=== PATIENT | female | born 1935 | race Caucasian/White ===

== ENCOUNTER 2016-07-06 21:47 | Inpatient (IN) ==
[2016-07-06] MEDS ORDERED: *HR* FentaNYL (PF) 100 MCG/2 ML VIAL NS ONE (21:52)
[2016-07-06 22:24] LABS: Basophils # 0.1 K/mcL (0.0-0.2); Basophils % 0.8 %; Eosinophils # 0.1 K/mcL (0.0-0.6); Eosinophils % 0.8 %; Hematocrit 33.7 % (35.3-44.9); Immature Granulocytes % 0.9 % (0-4); Lymphocytes # 0.9 K/mcL (0.6-4.6); Mean Corpuscular HGB Conc 32.6 g/dL (31.6-35.5); Mean Corpuscular Hemoglobin 35.6 pg (28.0-33.3); Mean Corpuscular Volume 109.1 fL (83.0-100.0); Mean Platelet Volume 10.3 fL (9.4-12.4); Monocytes # 0.5 K/mcL (0.0-1.3); Monocytes % 8.2 %; Neutrophils # 4.8 K/mcL (1.6-8.9); Platelet Count 195 K/mcL (140-400); Red Blood Count 3.09 M/mcL (3.82-4.97); Segmented Neutrophils % 75.3 %
[2016-07-06 22:29] LABS: INR 1.1; Prothrombin Time 12.1 Seconds (9.4-12.1)
[2016-07-06 22:34] LABS: BUN/Creatinine Ratio 24 (6-26); Blood Urea Nitrogen 17 mg/dL (7-20); Calcium 8.8 mg/dL (8.6-10.8); Carbon Dioxide 32 mEq/L (19-29); Chloride 109 mEq/L (98-109); Glucose 178 mg/dL (70-99); Osmolality,Calculated 312 (280-300); Potassium 3.9 mEq/L (3.5-4.5); Sodium 148 mEq/L (136-145); eGFR For African Americans > 60 (> 60); eGFR For Non-African Americans > 60 (> 60)
--- NOTE | 2016-07-06 22:35 | Emergency Department Note ---
Disposition Clinical Impression: Intertrochanteric fracture of left femur Qualifiers: Encounter type: initial encounter Fracture type: closed Qualified Code(s): S72.142A - Displaced intertrochanteric fracture of left femur, initial encounter for closed fracture Disposition: Admitted As Inpatient Condition: Fair Time of Disposition: 23:28 Lower Extremity Injury HPI - General Chief Complaint: ED Extremity Injury, Lower Stated Complaint: left hip pain Time Seen by Provider: 07/06/16 21:50 Source: patient, EMS Mode of arrival: EMS Limitations: other Nursing Notes Reviewed: Yes Vital Signs Reviewed: Yes - History of Present Illness HPI Narrative: Patient presents to the ED via EMS after a fall with the chief complaint of left hip pain and deformity. Patient has a history of dementia and is unable to provide any medical history or full review of symptoms. She does state that she fell today and has left hip pain. Denies chest pain, difficulty breathing or abdominal pain. Patient' s is on the way. - Related Data Previous Rx's Medication Instructions Recorded Ciprofloxacin HCl [Cipro] 500 mg PO BID #14 tab 09/13/15 Acetaminophen [Tylenol] 1,000 mg PO Q8HR PRN #9 tablet 02/29/16 Allergies Allergy/AdvReac Type Severity Reaction Status Date / Time No Known Allergies Allergy Verified 02/29/16 11:10 Limitations: ROS unobtainable due to patients medical condition Past Medical History - Past Medical History Attestation: Yes The following information was validated with the patient. Source: old records reviewed Medical history: Reports: hyperlipidemia, hypertension, seizures Psychiatric history: Reports: no psych history [employer] history: Reports: no [employer] WORK[employer] history - Social History Smoking Status: Never smoker Smokeless Tobacco Status: No Alcohol use: Reports: none Drug use: Reports: none Physical Exam - General Limitations: other General appearance: alert, in no apparent distress - Head Head exam: atraumatic, normocephalic, normal inspection - Eye Eye exam: Present: normal appearance, PERRL, EOMI - ENT ENT exam: normal exam, normal oropharynx, mucous membranes moist - Neck Neck exam: Present: normal inspection, full ROM, trachea midline. Absent: tenderness - Chest Chest inspection: Present: normal inspection, symmetric chest wall rise - Respiratory Respiratory exam: Present: normal lung sounds bilaterally - Cardiovascular Cardiovascular exam: Present: regular rate, normal rhythm, normal heart sounds - Abdominal Exam Abdominal exam: Present: soft, Non-Tender. Absent: tenderness, distention, guarding, rebound, rigidity - Expanded Lower Extremity Exam Hip/Pelvis exam: Present: deformity (Deformity over the left greater trochanter , tenderness, hip is shortened and slightly externally rotated. Neurovascularly intact) Knee exam: Present: other (Mild tenderness to the left knee but states that it actually hurts in her hip when palpated.) Gait: unable to bear weight - Neurological Exam Neurological exam: Present: alert, other (baseline according EMS, is in route) - Skin Skin exam: Present: warm, dry, intact, normal color Course Course Narrative: 80-year-old female with suspected femur or hip fracture. We will obtain labs and medication and x-rays. Likely admission. - Reevaluation(s) Reevaluation #1: is now present. The patient was just getting home after dinner and they have 5 steps leading up into the kitchen and as soon as she stepped up from the last step, She fell. She was unable to ambulate afterwards. Patient has a left intertrochanteric fracture. Spoke with orthopedics, recommended admission to hospitalist service. Spoke with the hospitalist accepted admission. reports patient is otherwise healthy and has no history of coronary artery disease, hypertension or diabetes. Vital Signs Temperature 97.7 F 07/06/16 21:49 Pulse Rate 77 07/06/16 21:49 Respiratory Rate 19 07/06/16 21:49 Blood Pressure 186/95 07/06/16 21:49 O2 Sat by Pulse Oximetry 98 07/06/16 21:49 Temperature 97.7 F 07/06/16 21:49 Pulse Rate 68 07/06/16 23:02 Respiratory Rate 20 07/06/16 23:02 Blood Pressure 178/77 07/06/16 23:02 O2 Sat by Pulse Oximetry 99 07/06/16 23:02 Oxygen Delivery Oxygen Delivery Room Air Extremity Injury, Lower - Lab Data Result diagrams: 07/06/16 22:16 07/06/16 22:16 Lab Results 07/06/16 07/06/16 07/06/16 Range/Units 22:16 22:16 22:16 WBC 6.4 (4.3-11.1) K/mcL RBC 3.09 L (3.82-4.97) M/mcL Hgb 11.0 L (11.5-15.4) g/dL Hct 33.7 L (35.3-44.9) % MCV 109.1 H (83.0-100.0) fL MCH 35.6 H (28.0-33.3) pg MCHC 32.6 (31.6-35.5) g/dL RDW 15.0 H (11.5-14.5) % Plt Count 195 (140-400) K/mcL MPV 10.3 (9.4-12.4) fL Immature Gran % 0.9 (0-4) % Seg Neutrophils % 75.3 % Lymphocytes % 14.0 % Monocytes % 8.2 % Eosinophils % 0.8 % Basophils % 0.8 % Neutrophils # 4.8 (1.6-8.9) K/mcL Lymphocytes # 0.9 (0.6-4.6) K/mcL Monocytes # 0.5 (0.0-1.3) K/mcL Eosinophils # 0.1 (0.0-0.6) K/mcL Basophils # 0.1 (0.0-0.2) K/mcL PT 12.1 (9.4-12.1) Seconds INR 1.1 Sodium 148 H (136-145) mEq/L Potassium 3.9 (3.5-4.5) mEq/L Chloride 109 (98-109) mEq/L Carbon Dioxide 32 H (19-29) mEq/L BUN 17 (7-20) mg/dL Creatinine 0.71 (0.57-1.11) mg/dL Est GFR ( Amer) > 60 (> 60) Est GFR (Non-Af Amer) > 60 (> 60) BUN/Creatinine Ratio 24 (6-26) Glucose 178 H (70-99) mg/dL Calculated Osmolality 312 H (280-300) Calcium 8.8 (8.6-10.8) mg/dL Blood Type Antibody Screen 07/06/16 Range/Units 22:16 WBC (4.3-11.1) K/mcL RBC (3.82-4.97) M/mcL Hgb (11.5-15.4) g/dL Hct (35.3-44.9) % MCV (83.0-100.0) fL MCH (28.0-33.3) pg MCHC (31.6-35.5) g/dL RDW (11.5-14.5) % Plt Count (140-400) K/mcL MPV (9.4-12.4) fL Immature Gran % (0-4) % Seg Neutrophils % % Lymphocytes % % Monocytes % % Eosinophils % % Basophils % % Neutrophils # (1.6-8.9) K/mcL Lymphocytes # (0.6-4.6) K/mcL Monocytes # (0.0-1.3) K/mcL Eosinophils # (0.0-0.6) K/mcL Basophils # (0.0-0.2) K/mcL PT (9.4-12.1) Seconds INR Sodium (136-145) mEq/L Potassium (3.5-4.5) mEq/L Chloride (98-109) mEq/L Carbon Dioxide (19-29) mEq/L BUN (7-20) mg/dL Creatinine (0.57-1.11) mg/dL Est GFR ( Amer) (> 60) Est GFR (Non-Af Amer) (> 60) BUN/Creatinine Ratio (6-26) Glucose (70-99) mg/dL Calculated Osmolality (280-300) Calcium (8.6-10.8) mg/dL Blood Type A POSITIVE Antibody Screen NEGATIVE Attestation Statement - Attestation Attestation: I, Jaden Garcia MD, personally performed a history and physical exam of the patient and discussed their management with the resident. I reviewed the resident's note and agree with the documented findings, medical decision making , and plan of care. 80-year-old female presents to the emergency department by parents with a complaint that she fell sometime earlier this evening and injured her left hip and thigh area. She was unable to get up or ambulate after the fall. Patient has very poor historian. She denies hitting her head. She denies any headache or neck pain. No pain in her back. No chest pain or abdominal pain. She is unsure exactly what caused her to fall. On examination patient is a well-developed thin elderly female in no acute distress. She does appear to be in moderate discomfort. She is alert and oriented. There is no cyanosis or diaphoresis. Head is nontender with no scalp tenderness or hematomas. No facial contusions noted. Neck is supple and nontender with full range of motion. Breath sounds are clear and equal bilaterally. Heart regular rate and rhythm. Abdomen soft and nontender with normal bowel sounds. No gross focal neurological deficits. There is marked tenderness over the left hip with some swelling and shortening of the left leg. Neurovascular function is intact distally. X-ray of the left hip femur and pelvis shows an acute intertrochanteric fracture of the left hip. No other fractures noted. Dr. Acuna discussed the case with the orthopedist director of oncology, Dr. Cotton, and he recommended admission by the hospitalist. The hospitalist, Dr. Merritt, was consulted and accepted admission of the patient.
[2016-07-07] MEDS ORDERED: *HR* OxyCODONE Immed Rel 5 MG TABLET PO PRN (01:39)
[2016-07-07] MEDS ORDERED: Ondansetron 4 MG/2 ML VIAL IVP PRN (01:39)
[2016-07-07] MEDS ORDERED: Acetaminophen 325 MG TABLET PO PRN (01:39)
[2016-07-07] MEDS ORDERED: Pantoprazole 40 MG VIAL IVP STA (01:39)
[2016-07-07] MEDS ORDERED: Naloxone 0.4 MG/ML INJ IVP PRN (01:39)
[2016-07-07] MEDS ORDERED: 0.9 % Sodium Chloride 1,000 ML IVC SCH (01:45)
--- NOTE | 2016-07-07 01:54 | Internal Med History&Physical ---
Date of Encounter: 07/07/16 Time of Encounter: 01:51 Assessment and Plan (1) Falls frequently Current visit: Yes Status: Chronic . (2) Dementia arising in the senium and presenium Current visit: Yes Status: Chronic . (3) Hyperosmolality and hypernatremia Current visit: Yes Status: Acute . (4) Anemia Current visit: Yes Status: Acute . Qualifiers: Anemia type: unspecified type Qualified Code(s): D64.9 - Anemia, unspecified (5) HTN (hypertension) Current visit: Yes Status: Chronic . Qualifiers: Hypertension type: unspecified secondary hypertension Qualified Code(s): I15.9 - Secondary hypertension, unspecified; I15 - Secondary hypertension (6) At risk for accident in home Current visit: Yes Status: Acute . (7) At risk for acid-base imbalance Current visit: Yes Status: Acute . (8) At risk for activity intolerance Current visit: Yes Status: Acute . (9) At risk for acute confusion Current visit: Yes Status: Acute . (10) Intertrochanteric fracture of left femur Current visit: Yes Status: Acute . Qualifiers: Encounter type: initial encounter Fracture type: closed Qualified Code(s) : S72.142A - Displaced intertrochanteric fracture of left femur, initial encounter for closed fracture (11) Frail elderly Current visit: Yes Status: Chronic . Internal Medicine - H&P: HPI Chief complaint: Left leg injury. Frequent falling. Admitted From: Emergency Dept Plans for Post Hospital Care: Home History of present illness: Ms. Donovan is a 80 year old female with advanced dementia with additional chronic medical problems that have included hypertension, dyslipidemia, presyncope-syncope unspecified, remote history of seizure disorder unspecified, right breast cancer status post mastectomy, depression and anxiety disorder, osteoarthritis, osteoporosis, nonsmoker. Patient carries a significant history of frequent falling. As a consequence over the years she suffered multiple fracture injuries that included clavicular fracture with fractures radius and Colles' fractures. She is admitted to [facility] at this time following a fall with left hip injury due to an acute closed intertrochanteric fracture. No evidence of fracture of the pelvis or left femoral shaft was identified radiographically. Due to the patient's advanced dementia and due to limitation of her who also suffers cognitive impairment and hearing loss it cannot be validated with about a single event occurred versus a simple stumble and fall. Patient has suffered no other obvious traumatic injuries. Vital signs are stable. CBC with differential macrocytic hyperchromic anemia with suggestion of underlying iron deficiency. PT/INR normal. Basic metabolic panel finds hypernatremia and hyperosmolality. Mild metabolic alkalosis. Mild hyperglycemia. No grossly apparent focal neurologic deficits are apparent. Neurovascular function is intact distally. Cardiopulmonary function is stable. The patient presents risk for further acute clinical decline and morbidity due to advanced age, frailty, presenting clinical findings and comorbidities. Workup and treatments will proceed comprehensively. Consultative opinion be sought as clinical circumstances justify. Surgery has been consulted. Cumulative laboratory and radiographic studies have been reviewed, considered and discussed. Given the patient's presenting concerns, past medical history, clinical findings and symptoms, she is admitted at this time to undergo further evaluation and disposition. Orders written. Past Med Surg Social Fam HX - Past Medical History Source: old records reviewed Medical history: arthritis, cancer (Breast Ca s/p right mastectomy.), dementia, hyperlipidemia, hypertension, malignancy, osteoporosis (Colle's fracture right wrist, closed. Multiple fractures secondary to frequent falling including clavicular fracture, rule out fracture, radius fracture.), peripheral artery disease (Left and right internal carotid artery atherosclerosis with 40-59% stenosis), seizures, syncope, other Psychiatric history: anxiety, depression, other - Past Surgical History Surgical History: appendectomy, cancer surgery, cataract, cholecystectomy, orthopedic, other, sinus surgery (Tonsillectomy adenoidectomy.), other - Social History Smoking Status: Never smoker Smokeless Tobacco Status: No Alcohol use: none Drug use: none Occupational status: unemployed Current living situation: Home, With Family Activity Level: Mostly sedentary Recent Out of Country Travel Within the Last 8 Weeks: No Exposure or Possible Exposure to Illness During Travel: No Internal Medicine - H&P: Meds Allergies No Known Allergies Allergy (Verified 02/29/16 11:10) ROS unobtainable: due to mental status All Systems PM: A 10-system review of systems was performed and is negative for pertinent findings except as documented above in the HPI. Patient Problems (Last Updated 07/06/16 @ 23:28 by Luc Acuna DO) Intertrochanteric fracture of left femur (Acute Medical) S72.142A Dehydration (Inactive Medical) E86.0 Fall (Inactive Medical) W19.XXXA Fracture of right distal radius (Inactive Medical) S52.501A History of dementia (Inactive Medical) Z86.59 Rib pain on left side (Inactive Medical) R07.81 Short-term memory loss (Inactive Medical) UTI (urinary tract infection) (Inactive Medical) N39.0 - Constitutional Constitutional: as per HPI - EENT Eyes: as per HPI Ears: as per HPI Nose, mouth and throat: as per HPI - Breasts Breasts: as per HPI - Cardiovascular Cardiovascular ROS IM: as per HPI - Respiratory Respiratory: as per HPI - Gastrointestinal Gastrointestinal: as per HPI - Genitourinary Genitourinary: as per HPI - Musculoskeletal Musculoskeletal ROS IM: as per HPI - Integumentary Integumentary IM: as per HPI - Neurological Neurological ROS: as per HPI - Psychiatric Psychiatric: as per HPI - Endocrine Endocrine IM: as per HPI - Hematologic/Lymphatic Hematologic/Lymphatic: as per HPI - Allergic/Immunologic Allergic/Immunologic: as per HPI - Constitutional Vitals: Temp Pulse Resp BP Pulse Ox 98.2 F 70 17 179/72 99 07/07/16 00:26 07/07/16 00:26 07/07/16 00:26 07/07/16 00:26 07/07/16 00:26 Vital Signs Temp Pulse Resp BP Pulse Ox 07/07/16 00:26 98.2 F 70 17 179/72 99 07/06/16 23:52 20 178/77 07/06/16 23:02 68 20 178/77 99 07/06/16 21:49 97.7 F 77 19 186/95 98 Intake and Output 07/06/16 07/06/16 07/07/16 15:59 23:59 07:59 Intake Total 0 / 0 Output Total 350 / 350 Balance -350 / -350 Intake: Oral 0 / 0 Output: Catheter 350 / 350 Other: Weight 52.163 kg 46.408 kg Patient Weight 07/07/16 23:59 Weight 46.408 kg General appearance: Present: cachectic, A&O X 2, underweight. Absent: answers questions appropriately - Head Head exam: Present: atraumatic, normocephalic - Eye Eye exam: Present: EOMI, PERRL, conjuntiva pink, sclera anicteric Pupils: Present: normal accommodation, PERRL - ENT ENT exam: Present: mucous membranes moist, normal oropharynx - Neck Neck exam general surgery: Present: supple, trachea midline. Absent: lymphadenopathy - Respiratory Respiratory exam: Present: decreased breath sounds, CTAB. Absent: accessory muscle use, rales, rhonchi, wheezes - Cardiovascular Cardiovascular exam: Present: distant heart sounds, RRR, +S1, +S2. Absent: diastolic murmur, gallop, rubs, systolic murmur - GI/Abdominal GI/Abdominal exam: Present: normal bowel sounds, soft, no peritoneal signs. Absent: distended, tenderness - Extremities Exam Extremities exam: Present: tenderness, warm, radial pulses palpable and symetrical. Absent: calf tenderness, cyanotic, pedal edema - Expanded Lower Extremities Exam Hip exam: Present: deformity, swelling, tenderness. Absent: full ROM, normal inspection Upper Leg exam: Present: swelling, tenderness. Absent: full ROM, normal inspection Neuro vascular tendon exam: Present: no vascular compromise, significant pain with passive ROM of distal joint. Absent: pulse deficit, sensory deficit Gait: Present: not tested/not observed - Neurological Exam Neurological exam: Present: alert, altered, CN II-XII intact, no focal deficits. Absent: oriented X3, pronater drift, facial droop, speech deficit - Psychiatric Psychiatric exam: Present: flat affect, normal mood - Skin Skin exam: Present: dry, intact, pallor, warm Internal Med - H&P Results - Labs CBC & Chem 7: 07/07/16 03:57 07/07/16 03:57 Labs: Short CBC 07/06/16 Range/Units 22:16 WBC 6.4 (4.3-11.1) K/mcL Hgb 11.0 L (11.5-15.4) g/dL Hct 33.7 L (35.3-44.9) % Plt Count 195 (140-400) K/mcL Neutrophils # 4.8 (1.6-8.9) K/mcL BMP 07/06/16 Range/Units 22:16 Sodium 148 H (136-145) mEq/L Potassium 3.9 (3.5-4.5) mEq/L Chloride 109 (98-109) mEq/L Carbon Dioxide 32 H (19-29) mEq/L BUN 17 (7-20) mg/dL Creatinine 0.71 (0.57-1.11) mg/dL Glucose 178 H (70-99) mg/dL Calcium 8.8 (8.6-10.8) mg/dL Abnormal lab results RBC 3.09 M/mcL (3.82-4.97) L 07/06/16 22:16 Hgb 11.0 g/dL (11.5-15.4) L 07/06/16 22:16 Hct 33.7 % (35.3-44.9) L 07/06/16 22:16 MCV 109.1 fL (83.0-100.0) H 07/06/16 22:16 MCH 35.6 pg (28.0-33.3) H 07/06/16 22:16 RDW 15.0 % (11.5-14.5) H 07/06/16 22:16 Sodium 148 mEq/L (136-145) H 07/06/16 22:16 Carbon Dioxide 32 mEq/L (19-29) H 07/06/16 22:16 Glucose 178 mg/dL (70-99) H 07/06/16 22:16 Calculated Osmolality 312 (280-300) H 07/06/16 22:16 Laboratory Results WBC 6.4 K/mcL (4.3-11.1) 07/06/16 22:16 RBC 3.09 M/mcL (3.82-4.97) L 07/06/16 22:16 Hgb 11.0 g/dL (11.5-15.4) L 07/06/16 22:16 Hct 33.7 % (35.3-44.9) L 07/06/16 22:16 MCV 109.1 fL (83.0-100.0) H 07/06/16 22:16 MCH 35.6 pg (28.0-33.3) H 07/06/16 22:16 MCHC 32.6 g/dL (31.6-35.5) 07/06/16 22:16 RDW 15.0 % (11.5-14.5) H 07/06/16 22:16 Plt Count 195 K/mcL (140-400) 07/06/16 22:16 MPV 10.3 fL (9.4-12.4) 07/06/16 22:16 Immature Gran % 0.9 % (0-4) 07/06/16 22:16 Seg Neutrophils % 75.3 % 07/06/16 22:16 Lymphocytes % 14.0 % 07/06/16 22:16 Monocytes % 8.2 % 07/06/16 22:16 Eosinophils % 0.8 % 07/06/16 22:16 Basophils % 0.8 % 07/06/16 22:16 Neutrophils # 4.8 K/mcL (1.6-8.9) 07/06/16 22:16 Lymphocytes # 0.9 K/mcL (0.6-4.6) 07/06/16 22:16 Monocytes # 0.5 K/mcL (0.0-1.3) 07/06/16 22:16 Eosinophils # 0.1 K/mcL (0.0-0.6) 07/06/16 22:16 Basophils # 0.1 K/mcL (0.0-0.2) 07/06/16 22:16 PT 12.1 Seconds (9.4-12.1) 07/06/16 22:16 INR 1.1 07/06/16 22:16 Sodium 148 mEq/L (136-145) H 07/06/16 22:16 Potassium 3.9 mEq/L (3.5-4.5) 07/06/16 22:16 Chloride 109 mEq/L (98-109) 07/06/16 22:16 Carbon Dioxide 32 mEq/L (19-29) H 07/06/16 22:16 BUN 17 mg/dL (7-20) 07/06/16 22:16 Creatinine 0.71 mg/dL (0.57-1.11) 07/06/16 22:16 Est GFR ( Amer) > 60 (> 60) 07/06/16 22:16 Est GFR (Non-Af Amer) > 60 (> 60) 07/06/16 22:16 BUN/Creatinine Ratio 24 (6-26) 07/06/16 22:16 Glucose 178 mg/dL (70-99) H 07/06/16 22:16 Calculated Osmolality 312 (280-300) H 07/06/16 22:16 Calcium 8.8 mg/dL (8.6-10.8) 07/06/16 22:16 Blood Type A POSITIVE 07/06/16 22:16 Antibody Screen NEGATIVE 07/06/16 22:16 Impressions Femur X-Ray 07/06/16 21:51 IMPRESSION: Acute intertrochanteric fracture of the left hip. No fracture of the pelvis or left femoral shaft is identified. D/ / Jaime Heredia MD / Jaime Heredia MD Interpreting Provider: Jaime Heredia MD Pelvis X-Ray 07/06/16 21:51
[2016-07-07] MEDS: *HR* Morphine 2 MG/ML SYRINGE IVP PRN ×2 (02:14→09:28)
[2016-07-07 02:29] LABS: Bilirubin,Urine Negative (Negative); Blood,Urine Negative (Negative); Clarity,Urine Clear (Clear); Color,Urine Yellow (Yellow); Glucose,Urine (UA) Normal (Normal); Ketones,Urine Negative (Negative); Leukocyte Esterase,Urine Small (Negative); Nitrite,Urine Negative (Negative); PH,Urine 7.5 pH Units (5.0-8.0); Protein,Urine Trace mg/dL (Neg-Trace); Specific Gravity,Urine 1.018 (1.010-1.025); Urobilinogen,Urine Normal (Normal)
[2016-07-07 02:31] LABS: Bacteria,Urine None Seen per hpf (None-Few); Hyaline Casts,Urine None Seen per lpf (None-Few); RBC,Urine 0-3 per hpf (0-3); Squamous Epithelial Cell,Urine Many per lpf (None-Few)
[2016-07-07] MEDS: D5% in Water 1,000 ML IVC SCH (02:48)
[2016-07-07 04:07] LABS: VBG PH 7.41 pH Units (7.32-7.42)
[2016-07-07 04:09] LABS: Basophils % 0.3 %; Hematocrit 31.7 % (35.3-44.9); Hemoglobin 10.3 g/dL (11.5-15.4); Immature Granulocytes % 0.4 % (0-4); Lymphocytes # 0.4 K/mcL (0.6-4.6); Lymphocytes % 4.3 %; Mean Corpuscular HGB Conc 32.5 g/dL (31.6-35.5); Mean Corpuscular Hemoglobin 35.3 pg (28.0-33.3); Mean Corpuscular Volume 108.6 fL (83.0-100.0); Mean Platelet Volume 10.4 fL (9.4-12.4); Monocytes # 0.8 K/mcL (0.0-1.3); Monocytes % 8.5 %; Neutrophils # 8.5 K/mcL (1.6-8.9); Platelet Count 191 K/mcL (140-400); Red Blood Count 2.92 M/mcL (3.82-4.97); Segmented Neutrophils % 86.5 %
[2016-07-07 04:12] LABS: INR 1.1; Prothrombin Time 12.3 Seconds (9.4-12.1)
[2016-07-07 04:15] LABS: Activated Partial Thrombo Time 26.2 Seconds (26.0-36.0)
[2016-07-07 04:23] LABS: Hemoglobin A1C 5.1 %
[2016-07-07 04:24] LABS: Alanine Aminotransferase 10 Units/L (0-55); Albumin 3.3 g/dL (3.5-5.0); Albumin/Globulin Ratio 1.1 (1.1-2.2); Alkaline Phosphatase 129 Units/L (38-126); Aspartate Amino Transferase 16 Units/L (5-34); BUN/Creatinine Ratio 22 (6-26); Bilirubin,Total 0.3 mg/dL (0.2-1.2); Blood Urea Nitrogen 14 mg/dL (7-20); Calcium 8.4 mg/dL (8.6-10.8); Carbon Dioxide 31 mEq/L (19-29); Chloride 109 mEq/L (98-109); Chol/HDL Ratio 3.5 (0-4.9); Cholesterol 219 mg/dL (< 200); Glucose 155 mg/dL (70-99); HDL Cholesterol 62 mg/dL (40-59); LDL Cholesterol,Calculated 143 mg/dL (0-99); Magnesium 2.1 mg/dL (1.6-2.6); Osmolality,Calculated 306 (280-300); Phosphorous 2.3 mg/dL (2.3-4.7); Potassium 3.6 mEq/L (3.5-4.5); Sodium 146 mEq/L (136-145); Total Protein 6.3 g/dL (6.0-8.3); Triglycerides 70 mg/dL (< 150); eGFR For African Americans > 60 (> 60); eGFR For Non-African Americans > 60 (> 60)
[2016-07-07 04:59] LABS: Folate 2.7 ng/mL (7.0-31.4)
[2016-07-07 05:40] LABS: Thyroid Stimulating Hormone 1.866 mcIU/mL (0.350-4.840)
--- NOTE | 2016-07-07 07:47 | Orthopedic Consult Note ---
Date of Encounter: 07/07/16 Time of Encounter: 07:46 Assessment and Plan (1) Intertrochanteric fracture of left femur Current Visit: Yes Status: Acute Plan for surgery today with . NPO. NWB Plan for Left hip Open reduction, intramedullary nail fixation. Consent reviewed, discussed and signed with her as acting POA. Qualifiers: Encounter type: initial encounter Fracture type: closed Qualified Code(s) : S72.142A - Displaced intertrochanteric fracture of left femur, initial encounter for closed fracture (2) Falls frequently Current Visit: Yes Status: Chronic (3) Dementia arising in the senium and presenium Current Visit: Yes Status: Chronic History of Present Illness Chief complaint: Fall HPI: Ms. Donovan is a 80 year old female, disoriented to person, place and time. She has a history of dementia and is a poor historian. History obtained from and medical records. She has had multiple falls recently, most recently yesterday, resulting in a Left hip fracture. She denies LOC, however, unable to be verified. She denies N/T and radiation of pain, but again she is not aware of surroundings. Vitals are stable, afebrile. Catheter in place. Past Med Surg Social Fam HX - Past Medical History Medical history: hyperlipidemia, hypertension, seizures, other Psychiatric history: no psych history - Past Surgical History Surgical History: other - Social History Smoking Status: Never smoker Smokeless Tobacco Status: No Alcohol use: none Drug use: none Medications and Allergies Anastrozole [Arimidex] 1 mg PO DAILY 07/07/16 [History] Lisinopril [Zestril] 20 mg PO DAILY 07/07/16 [History] Paroxetine HCl [Paxil] 10 mg PO QAM 07/07/16 [History] Phenytoin ER [Dilantin ER] 300 mg PO HS 07/07/16 [History] Allergies No Known Allergies Allergy (Verified 02/29/16 11:10) ROS unobtainable: due to mental status All Systems Reviewed: A 10-system review of systems was performed and is negative for pertinent findings except as documented above in the HPI. - Constitutional Constitutional: as per HPI - Cardiovascular Cardiovascular: as per HPI Physical Exam - Constitutional Vitals: Temp Pulse Resp BP Pulse Ox 97.7 F 75 16 161/71 98 07/07/16 06:53 07/07/16 06:53 07/07/16 06:53 07/07/16 06:53 07/07/16 06:53 - Fracture left hip Location of fracture: Left Hip Appearance: normal Compartments: soft Distal extremity neurovascularly intact: Yes Proximal joint involvement: No Distal joint involvement: No Results - Labs Result Diagrams: 07/08/16 04:46 07/08/16 04:46 Labs: Abnormal lab results RBC 2.92 M/mcL (3.82-4.97) L 07/07/16 03:57 Hgb 10.3 g/dL (11.5-15.4) L 07/07/16 03:57 Hct 31.7 % (35.3-44.9) L 07/07/16 03:57 MCV 108.6 fL (83.0-100.0) H 07/07/16 03:57 MCH 35.3 pg (28.0-33.3) H 07/07/16 03:57 RDW 15.0 % (11.5-14.5) H 07/07/16 03:57 Lymphocytes # 0.4 K/mcL (0.6-4.6) L 07/07/16 03:57 ESR 26 mm/hr (0-15) H 07/07/16 03:57 PT 12.3 Seconds (9.4-12.1) H 07/07/16 03:57 VBG pCO2 52 mmHg (41-51) H 07/07/16 03:57 VBG pO2 70 mmHg (25-40) H 07/07/16 03:57 VBG HCO3 33.0 mEq/L (21-27) H 07/07/16 03:57 Sodium 146 mEq/L (136-145) H 07/07/16 03:57 Carbon Dioxide 31 mEq/L (19-29) H 07/07/16 03:57 Glucose 155 mg/dL (70-99) H 07/07/16 03:57 Calculated Osmolality 306 (280-300) H 07/07/16 03:57 Calcium 8.4 mg/dL (8.6-10.8) L 07/07/16 03:57 Alkaline Phosphatase 129 Units/L (38-126) H 07/07/16 03:57 C-Reactive Protein 6 mg/L (Less than 5) H 07/07/16 03:57 B-Natriuretic Peptide 172 pg/mL (0-100) H 07/07/16 03:57 Albumin 3.3 g/dL (3.5-5.0) L 07/07/16 03:57 Cholesterol 219 mg/dL (< 200) H 07/07/16 03:57 LDL Cholesterol, Calc 143 mg/dL (0-99) H 07/07/16 03:57 HDL Cholesterol 62 mg/dL (40-59) H 07/07/16 03:57 Vitamin B12 198 pg/mL (213-816) L 07/07/16 03:57 Folate 2.7 ng/mL (7.0-31.4) L 07/07/16 03:57 Ur Leukocyte Esterase Small (Negative) H 07/07/16 02:19 Urine Microscopic WBC 5-15 per hpf (0-3) H 07/07/16 02:19 Ur Squamous Epith Cells Many per lpf (None-Few) H 07/07/16 02:19 H & H 07/07/16 Range/Units 03:57 Hgb 10.3 L (11.5-15.4) g/dL Hct 31.7 L (35.3-44.9) % All other labs normal. Femur X-Ray 07/06/16 21:51 IMPRESSION: Acute intertrochanteric fracture of the left hip. No fracture of the pelvis or left femoral shaft is identified. D/ / Jaime Heredia MD / Jaime Heredia MD Interpreting Provider: Jaime Heredia MD Pelvis X-Ray 07/06/16 21:51 IMPRESSION: Acute intertrochanteric fracture of the left hip. No fracture of the pelvis or left femoral shaft is identified. - Diagnostic results Hip x-ray: report reviewed, image reviewed (by ) Consult Discharge Plan - Plan Referrals: NO,PCP [Primary Care Provider] -
--- NOTE | 2016-07-07 09:16 | Internal Med Progress Note ---
Date of Encounter: 07/07/16 Time of Encounter: 08:35 - Constitutional Vitals: Temp Pulse Resp BP Pulse Ox 97.7 F 75 16 161/71 98 07/07/16 06:53 07/07/16 06:53 07/07/16 06:53 07/07/16 06:53 07/07/16 06:53 General appearance: Present: cachectic, A&O X 2, underweight. Absent: answers questions appropriately Internal Medicine: Result - Labs CBC & Chem 7: 07/07/16 03:57 07/07/16 03:57 Labs: Short CBC 07/07/16 Range/Units 03:57 WBC 9.8 D (4.3-11.1) K/mcL Hgb 10.3 L (11.5-15.4) g/dL Hct 31.7 L (35.3-44.9) % Plt Count 191 (140-400) K/mcL Neutrophils # 8.5 (1.6-8.9) K/mcL BMP 07/07/16 03:57 Sodium 146 H Potassium 3.6 Chloride 109 Carbon Dioxide 31 H BUN 14 Creatinine 0.64 Glucose 155 H Calcium 8.4 L Liver Function 07/07/16 Range/Units 03:57 Total Bilirubin 0.3 (0.2-1.2) mg/dL AST 16 (5-34) Units/L ALT 10 (0-55) Units/L Alkaline Phosphatase 129 H (38-126) Units/L Albumin 3.3 L (3.5-5.0) g/dL Urine 07/07/16 Range/Units 02:19 Urine Color Yellow (Yellow) Urine Clarity Clear (Clear) Urine pH 7.5 (5.0-8.0) pH Units Ur Specific [place] 1.018 (1.010-1.025) Urine Protein Trace (Neg-Trace) mg/dL Urine Glucose (UA) Normal (Normal) mg/dL - ABG Interpretation ABG results: PT/INR, D-dimer PT 12.3 Seconds (9.4-12.1) H 07/07/16 03:57 - Impressions Impressions Chest X-Ray 07/07/16 01:48 IMPRESSION: No acute cardiopulmonary disease is identified. D/ / Jaime Heredia MD / Jaime Heredia MD Interpreting Provider: Jaime Heredia MD Consult Discharge Plan - Plan Referrals: NO,PCP [Primary Care Provider] -
--- NOTE | 2016-07-07 11:30 | Event Note ---
Date of Encounter: 07/07/16 Time of Encounter: 08:45 Patient is lying in bed. Appears comfortable. Pain is well controlled. Awaiting evaluation by orthopedics and possible surgery later today. Patient is at moderate risk for complications from intermediate risk surgery.
--- NOTE | 2016-07-07 12:24 | Electrocardiograph Report ---
[place] [id number] Test Date: 2016-07-07 Pat Name: Estelita Donovan Department: [id number] Room: [facility] Gender: F Dishroom Attendant: [facility] : 1935 Requested By: Beau Merritt Order Number: [id number] Reading MD: Philipp Reveles MD Measurements Intervals [place] Rate: 71 P: 75 VA: 120 QRS: 5 QRSD: 77 T: 61 QT: 425 QTc: 447 Interpretive Statements SINUS RHYTHM WITH OCCASIONAL SUPRAVENTRICULAR PREMATURE COMPLEXES Electronically Signed On 07-07-2016 12:21:57 EDT by Philipp Reveles MD
--- NOTE | 2016-07-07 19:13 | Anesthesia Evaluation PreOp ---
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 History: Seizures, Other (dementia) Other Medical History: Denies Any Significant HX Anesthesia History: No Prior Anesthetic Complications, Past Anesthesia Alcohol Use: none Drug use: none Medications and Allergies Anastrozole [Arimidex] 1 mg PO DAILY 07/07/16 [History] Lisinopril [Zestril] 20 mg PO DAILY 07/07/16 [History] Paroxetine HCl [Paxil] 10 mg PO QAM 07/07/16 [History] Phenytoin ER [Dilantin ER] 300 mg PO HS 07/07/16 [History] Allergies No Known Allergies Allergy (Verified 02/29/16 11:10) - Meds/Allergy Pre-op Review Medications Reviewed: Yes Allergies Reviewed: Yes Beta Blockers on Current Med List: No Anesthesia Results - Labs 07/07/16 03:57 07/07/16 03:57 - Imaging EKG: report reviewed (sr with svc) Anesthesia Exam Vital Signs/O2 Sat/Glucose, Most Current Temp Pulse Resp BP Pulse Ox 07/07/16 16:06 98.4 F 117 16 154/73 91 Height: 1.65 Weight: 46 NPO (# of Hours): >8 - HEENT Pupil (Motor): Pupils equal, EOMI Mallampati: I Teeth: Poor dentition Oral Opening: Greater than 3 - THERMOSCREW OPERATOR LOC: Confused THERMOSCREW OPERATOR Motor: Deficit RUE, Deficit LUE, Deficit RLE, Deficit LLE, Deficit Face THERMOSCREW OPERATOR Sensory: Deficit: RUE, LUE, RLE, LLE, Face - Cardiac Rhythm: Regular Murmur: None - Pulmonary Breath Sounds: bilateral Clear Respiratory Effort: Symmetrical Anesthesia Assess/Plan ASA Score: 3 (history obtained from chart and d/w pt and her . However, pt has severe dementia and her is very forgetful. Therefore, I did not obtain consent and I did call Risk/Legal several times to give them a heads up for tomorrow. There was no answer.) Modified Lookout Scale for Level of Consciousness: Cooperative, oriented, and tranquil Anesthetic Plan: General Monitoring Plan: Standard Monitors Recovery Plan: PACU
[2016-07-08] MEDS: *HR* Morphine 2 MG/ML SYRINGE IVP PRN (00:34)
[2016-07-08] MEDS: D5% in Water 1,000 ML IVC SCH (00:51)
[2016-07-08 05:15] LABS: Basophils % 0.4 %; Eosinophils # 0.1 K/mcL (0.0-0.6); Eosinophils % 0.7 %; Hematocrit 28.2 % (35.3-44.9); Hemoglobin 9.1 g/dL (11.5-15.4); Immature Granulocytes % 0.4 % (0-4); Lymphocytes # 1.2 K/mcL (0.6-4.6); Mean Corpuscular HGB Conc 32.3 g/dL (31.6-35.5); Mean Corpuscular Volume 108.5 fL (83.0-100.0); Mean Platelet Volume 10.8 fL (9.4-12.4); Monocytes # 0.9 K/mcL (0.0-1.3); Monocytes % 11.4 %; Neutrophils # 5.6 K/mcL (1.6-8.9); Platelet Count 141 K/mcL (140-400); Red Cell Distribution Width 14.8 % (11.5-14.5); Segmented Neutrophils % 72.1 %
[2016-07-08 05:21] LABS: BUN/Creatinine Ratio 21 (6-26); Blood Urea Nitrogen 13 mg/dL (7-20); Calcium 8.1 mg/dL (8.6-10.8); Carbon Dioxide 30 mEq/L (19-29); Chloride 107 mEq/L (98-109); Glucose 123 mg/dL (70-99); Osmolality,Calculated 293 (280-300); Potassium 3.6 mEq/L (3.5-4.5); Sodium 141 mEq/L (136-145); eGFR For African Americans > 60 (> 60); eGFR For Non-African Americans > 60 (> 60)
[2016-07-08] MEDS ORDERED: Lisinopril 20 MG TABLET PO SCH (09:00)
[2016-07-08] MEDS ORDERED: Anastrozole 1 MG TABLET PO SCH (09:00)
[2016-07-08] MEDS ORDERED: *HR* Succinylcholine 200 MG/10 ML VIAL IVP ONE (13:43)
[2016-07-08] MEDS ORDERED: Ondansetron 4 MG/2 ML VIAL ONE (13:43)
[2016-07-08] MEDS ORDERED: *HR* Propofol 200 MG/20 ML VIAL IVP ONE (13:43)
[2016-07-08] MEDS ORDERED: Lidocaine -MPF 2% 2 ML VIAL ONE (13:43)
[2016-07-08] MEDS ORDERED: Dexamethasone 4 MG/ML VIAL ONE (13:43)
[2016-07-08] MEDS ORDERED: *HR* Rocuronium Bromide 50 MG/5 ML VIAL ONE (13:43)
--- NOTE | 2016-07-08 13:53 | Event Note ---
Date of Encounter: 07/08/16 Time of Encounter: 13:51 The patient has a significant history of dementia. The patient's signed consent for left hip intramedullary nailing yesterday. Apparently his cognitive status changes and he is somewhat disoriented today. The patient is at moderate risk for a low to intermediate procedure. This is an emergency surgery to stabilize and repair her hip. The patient otherwise does not have an asigned legal guardian or power of transactional attorney, Case was discussed with risk and legal.
[2016-07-08] MEDS ORDERED: *HR* FentaNYL (PF) 100 MCG/2 ML VIAL ONE (14:06)
[2016-07-08] MEDS ORDERED: EPHEDrine 50 MG/ML VIAL ONE (14:42)
--- NOTE | 2016-07-08 15:06 | Internal Med Progress Note ---
Date of Encounter: 07/08/16 Time of Encounter: 10:25 - Assessment and plan (1) Intertrochanteric fracture of left femur Current Visit: Yes Status: Acute Assessment and plan: Awaiting surgery Planned for later today. She will start to receive physical therapy after surgery. Most likely will need placement to skilled rehabilitation. We will follow orthopedics recommendations. Moderate risk for complications. Qualifiers: Encounter type: initial encounter Fracture type: closed Qualified Code(s) : S72.142A - Displaced intertrochanteric fracture of left femur, initial encounter for closed fracture (2) Dementia arising in the senium and presenium Current Visit: Yes Status: Chronic Assessment and plan: Supportive care. Fall precautions. At risk for delirium. (3) Hyperosmolality and hypernatremia Current Visit: Yes Status: Resolved Assessment and plan: This has resolved now. Sodium is 141 today. (4) Anemia Current Visit: Yes Status: Acute Assessment and plan: Hemoglobin 9.1 today. Patient has low vitamin B12 and folic acid levels. Will replace. Likely nutritional deficiency. Monitor blood counts closely. Transfuse as needed. Qualifiers: Anemia type: other cause Other causes of anemia: other cause, not classified Qualified Code(s): D64.89 - Other specified anemias (5) HTN (hypertension) Current Visit: Yes Status: Chronic Assessment and plan: Blood pressure is elevated today. Will monitor blood pressure and adjust medications accordingly. 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 - Subjective Interval history: Patient appears comfortable and lying in bed. Denies any complaints at this time. Pain in her left leg is well controlled. - Constitutional Vitals: Temp Pulse Resp BP Pulse Ox 98.1 F 74 14 155/66 95 07/08/16 11:25 07/08/16 11:25 07/08/16 11:25 07/08/16 11:25 07/08/16 11:25 General appearance: Present: cachectic, A&O X 2, underweight, answers questions appropriately (Answers some questions appropriately. Patient has underlying dementia and is not able to recollect well.) - Respiratory Respiratory exam: Present: CTAB. Absent: accessory muscle use, rales, rhonchi, wheezes - Cardiovascular Cardiovascular exam: Present: RRR, +S1, +S2. Absent: diastolic murmur, gallop, rubs, systolic murmur - GI/Abdominal GI/Abdominal exam: Present: normal bowel sounds, soft, no peritoneal signs. Absent: distended, tenderness - Extremities Exam Extremities exam: Present: tenderness (Left hip region), warm, radial pulses palpable and symetrical. Absent: calf tenderness, cyanotic, pedal edema - Neurological Exam Neurological exam: Present: alert, no focal deficits. Absent: facial droop, speech deficit - Skin Skin exam: Present: dry, intact Internal Medicine: Result - Labs CBC & Chem 7: 07/08/16 04:46 07/08/16 04:46 Labs: Short CBC 07/08/16 Range/Units 04:46 WBC 7.7 (4.3-11.1) K/mcL Hgb 9.1 L (11.5-15.4) g/dL Hct 28.2 L (35.3-44.9) % Plt Count 141 (140-400) K/mcL Neutrophils # 5.6 (1.6-8.9) K/mcL BMP 07/08/16 04:46 Sodium 141 Potassium 3.6 Chloride 107 Carbon Dioxide 30 H BUN 13 Creatinine 0.63 Glucose 123 H Calcium 8.1 L - ABG Interpretation ABG results: PT/INR, D-dimer PT 12.3 Seconds (9.4-12.1) H 07/07/16 03:57 - VTE Documentation of Mechanical Device: Venous foot pump, device Consult Discharge Plan - Plan Referrals: NO,PCP [Primary Care Provider] - - Attending Attestation This document has been at least partially created by [employer] recognition technology by Dr. Streeter. Errors in grammar, wording or other phrases may exist. If errors are found after the documentation is signed, they will be addressed individually in the addendum section of this document when appropriate.
[2016-07-08] MEDS ORDERED: *HR* Promethazine 25 MG/ML VIAL IVP PRN ×2 (15:09→15:58)
[2016-07-08] MEDS ORDERED: *HR* HYDROmorphone (PF) 1 MG/ML SYRINGE IVP PRN ×2 (15:09→15:58)
[2016-07-08] MEDS ORDERED: *HR* Labetalol 100 MG/20 ML MDV IVP PRN ×2 (15:09→15:58)
[2016-07-08] MEDS ORDERED: Ondansetron 4 MG/2 ML VIAL IVP ONE ×2 (15:09→15:58)
--- NOTE | 2016-07-08 15:11 | Operative Note ---
Date of procedure: 07/08/16 Pre-op diagnosis: Left hip intertrochanteric fracture Post-op diagnosis: same Procedure: Left hip intramedullary nailing Implants: Synthes trochanteric femoral nail Anesthesia: ANGELICA Surgeon: Dale Petersen Estimated blood loss (cc): 100 Specimen: 0 Condition: stable Disposition: PACU Procedure in Detail: The patient received IV antibiotics in the holding area. She was brought to the operating room, sign in was performed. The patient underwent general anesthesia on the hospital bed. She was then transferred to the fracture table in supine position. The patient was positioned with the support groin post, the affected left lower extremity in the traction [place]villa and the contralateral lower extremity in a well-padded limb [place] with a hip flexed and abducted out of the way. Fluoroscopy was then brought in, the fractures visualized, and the fracture reduced. We checked on AP and true lateral view of the hip. Once satisfactory the left hip, from the pelvis down to the knee, was prepped and draped in usual sterile fashion. A timeout was performed. The level of the greater trochanter was palpated, a 4-5 cm oblique incision was made just proximally, , followed by Bovie dissection. The hip abductor was sharply split in line with its fibers with a curved Mejia scissors. The tip of the greater trochanter was palpable. A curved awl was then positioned on the tip. Its position was checked on fluoroscopy, slightly advanced, and we checked the lateral view. Once appropriately positioned, the aggressive awl was then used to open the proximal femur down to level of the lesser trochanter. A short Trochanteric Femoral Nail with 130 degree neck angle, 10 mm diameter, was assembled, and appropriately inserted into the proximal femur. The appropriate level was checked under fluoroscopy. The triple trochars of 130 degree neck angle was then positioned against the skin, checking fluoroscopy for positioning. Once satisfactory a 2.5 cm incision was made, the fascia was bluntly split along with the muscle fibers of the vastus lateralis. The triple trocar was advanced up against the lateral cortex. The guidepin was then driven up into the femoral head, checking AP and lateral views. The wire was adjusted as needed. A 90 mm long helical blade was chosen. Overdrilled the guidewire, and the helical blade was tapped in place over the guidewire in standard technique. Once close to the edge of the femoral head, the setscrew was then screwed down. The triple trochars for the distal static locking screw were placed in the jig, a 1 cm longitudinal incision was made. The trochars were advanced to the cortex , and drilled across. The depth was measured and a 36 mm long by 5 mm bicortical screw was placed. All trochars and jig were removed. Final fluoroscopy shots were taken and saved showing good AP and lateral views of the hip and also distally at the tip of the nail. The wounds were irrigated with normal saline. Fascia over the abductors was closed with 1 Vicryl [id number] stitches, including the deep subcutaneous fat layer. Subcutaneous tissues were closed with 2-0 Vicryl, and the skin incisions were closed with briana. Sterile dressings were applied. The patient was transferred to hospital bed where she was extubated and taken to recovery room in stable condition.
--- NOTE | 2016-07-08 15:44 | Anesthesia Evaluation Post Op ---
Date of Encounter: 07/08/16 Time of Encounter: 15:43 - Vital Signs Vital Signs: Vital Signs/O2 Sat/Glucose, Most Current Temp Pulse Resp BP Pulse Ox 07/08/16 15:38 77 20 166/66 97 07/08/16 15:28 78 20 163/74 97 07/08/16 15:18 98.1 F 77 20 177/73 100 - Lungs Lungs: Clear Ascult./Percussion - Airway Airway: Non-obstructed - Cardiovascular Regular Rate, Baseline Rhythm - Mental Status Mental Status: Alert & Oriented, Answers Appropriately - Pain Pain Scale: 0 Pain Scale used: Numeric (1 - 10) - Nausea Vomiting Nausea Vomiting: Not Present - Hydration Hydration: Ice chips, Sun catheter - Discharge PostOp Status: Transfer Patient to floor
[2016-07-08] MEDS ORDERED: Sennosides 8.6 MG TABLET PO PRN (15:58)
[2016-07-08] MEDS ORDERED: Naloxone 0.4 MG/ML INJ IVP PRN ×2 (15:58)
[2016-07-08] MEDS ORDERED: *HR* Morphine 2 MG/ML SYRINGE IVP PRN (15:58)
[2016-07-08] MEDS ORDERED: Acetaminophen 325 MG TABLET PO PRN (15:58)
[2016-07-08] MEDS ORDERED: D5% in 0.45% NACL 1,000 ML IVC SCH (15:58)
[2016-07-08] MEDS ORDERED: Ondansetron 4 MG/2 ML VIAL IVP PRN (15:58)
[2016-07-08] MEDS: ceFAZolin 2,000 MG in D5% in Water 100 ML IVPB SCH (18:46)
[2016-07-08] MEDS: *HR* OxyCODONE Immed Rel 5 MG TABLET PO PRN (21:11)
[2016-07-09] MEDS: ceFAZolin 2,000 MG in D5% in Water 100 ML IVPB SCH (00:01)
[2016-07-09 03:15] LABS: BUN/Creatinine Ratio 18 (6-26); Blood Urea Nitrogen 11 mg/dL (7-20); Calcium 8.2 mg/dL (8.6-10.8); Carbon Dioxide 31 mEq/L (19-29); Chloride 101 mEq/L (98-109); Glucose 115 mg/dL (70-99); Osmolality,Calculated 286 (280-300); Potassium 3.5 mEq/L (3.5-4.5); Sodium 138 mEq/L (136-145); eGFR For African Americans > 60 (> 60); eGFR For Non-African Americans > 60 (> 60)
[2016-07-09] MEDS: *HR* Enoxaparin 30 MG/0.3 ML SYRINGE SQ SCH ×2 (05:56→16:44)
[2016-07-09] MEDS: Lisinopril 20 MG TABLET PO SCH (09:43)
[2016-07-09] MEDS: Anastrozole 1 MG TABLET PO SCH (09:43)
[2016-07-09] MEDS: *HR* OxyCODONE Immed Rel 5 MG TABLET PO PRN ×2 (09:43→16:12)
[2016-07-09] MEDS: Folic Acid 1 MG TABLET PO SCH (09:44)
[2016-07-09] MEDS: Cyanocobalamin (B-12) 1,000 MCG/ML VIAL SQ SCH (09:44)
--- NOTE | 2016-07-09 09:48 | Internal Med Progress Note ---
Date of Encounter: 07/09/16 Time of Encounter: 09:15 - Assessment and plan (1) Intertrochanteric fracture of left femur Current Visit: Yes Status: Acute Assessment and plan: Status post left hip intramedullary nailing done yesterday. Doing well postprocedure. Continue physical therapy. Pain control. Awaiting placement to skilled rehabilitation Qualifiers: Encounter type: initial encounter Fracture type: closed Qualified Code(s) : S72.142A - Displaced intertrochanteric fracture of left femur, initial encounter for closed fracture (2) Dementia arising in the senium and presenium Current Visit: Yes Status: Chronic Assessment and plan: Chronic and stable. No signs of delirium at this time. (3) Hyperosmolality and hypernatremia Current Visit: Yes Status: Resolved (4) Anemia Current Visit: Yes Status: Acute Assessment and plan: Hemoglobin levels remained stable. We will continue to monitor. Low risk for complications at this time. 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 Supportive care. Physical therapy. - Subjective Interval history: Patient not able to provide much history due to underlying dementia. Denies any pain at this time. Is sitting up in chair. No other acute issues reported overnight. - Constitutional Vitals: Temp Pulse Resp BP Pulse Ox 97.7 F 86 16 173/72 94 07/09/16 06:47 07/09/16 06:47 07/09/16 06:47 07/09/16 06:47 07/09/16 06:47 General appearance: Present: cachectic, cooperative, A&O X 1, underweight, answers questions appropriately (Answers some questions appropriately. Patient has underlying dementia and is not able to recollect well.) - Neck Neck exam general surgery: Present: supple, trachea midline. Absent: lymphadenopathy - Respiratory Respiratory exam: Present: CTAB. Absent: accessory muscle use, rales, rhonchi, wheezes - Cardiovascular Cardiovascular exam: Present: RRR, +S1, +S2. Absent: diastolic murmur, gallop, rubs, systolic murmur - Extremities Exam Extremities exam: Present: tenderness (Left hip region), warm, radial pulses palpable and symetrical. Absent: calf tenderness, cyanotic, pedal edema Internal Medicine: Result - Labs CBC & Chem 7: 07/09/16 02:23 07/09/16 02:23 Labs: Short CBC 07/09/16 Range/Units 02:23 Hgb 10.0 L (11.5-15.4) g/dL Hct 30.0 L (35.3-44.9) % BMP 07/09/16 02:23 Sodium 138 Potassium 3.5 Chloride 101 Carbon Dioxide 31 H BUN 11 Creatinine 0.61 Glucose 115 H Calcium 8.2 L - ABG Interpretation ABG results: PT/INR, D-dimer PT 12.3 Seconds (9.4-12.1) H 07/07/16 03:57 - Impressions Impressions Fluoroscopy 07/08/16 14:18 IMPRESSION: Intraprocedural fluoroscopic spot images as above. See separate procedure report for more information. D/ / 07/08/2016 15:22:11 Michael Cloud MD / ravinder Interpreting Provider: Michael Cloud MD Hip X-Ray 07/08/16 14:18 IMPRESSION: Intraprocedural fluoroscopic spot images as above. See separate procedure report for more information. D/ / 07/08/2016 15:22:11 Michael Cloud MD / ravinder Interpreting Provider: Michael Cloud MD - VTE Documentation of Mechanical Device: Venous foot pump, device Consult Discharge Plan - Plan Referrals: NO,PCP [Primary Care Provider] - - Attending Attestation This document has been at least partially created by [employer] recognition technology by Dr. Streeter. Errors in grammar, wording or other phrases may exist. If errors are found after the documentation is signed, they will be addressed individually in the addendum section of this document when appropriate.
--- NOTE | 2016-07-09 14:32 | Orthopedics Progress Note ---
Date of Encounter: 07/09/16 Time of Encounter: 14:31 - Assessment and Plan (1) Intertrochanteric fracture of left femur Current Visit: Yes Status: Acute Postoperative day #1, stable Continue OT/PT Weightbearing as tolerated Continue DVT prophylaxis Discharge planning Qualifiers: Encounter type: initial encounter Fracture type: closed Qualified Code(s) : S72.142A - Displaced intertrochanteric fracture of left femur, initial encounter for closed fracture Subjective Principal diagnosis: Left hip fracture Interval history: Patient is comfortable expressing no pain Objective Vital signs: Vital Signs Temp Pulse Resp BP Pulse Ox 07/09/16 12:36 98.4 F 86 12 125/66 97 07/09/16 06:47 97.7 F 86 16 173/72 94 07/09/16 03:55 97.9 F 72 15 169/70 98 07/08/16 23:59 97.9 F 83 15 172/71 97 07/08/16 19:44 97.8 F 73 14 158/72 97 07/08/16 18:49 97.2 F L 80 20 162/61 97 07/08/16 17:47 97.5 F L 74 18 158/69 98 07/08/16 17:01 97.5 F L 72 16 169/71 98 07/08/16 16:02 97.2 F L 75 20 155/80 97 07/08/16 15:48 98.1 F 78 20 159/72 97 07/08/16 15:38 77 20 166/66 97 07/08/16 15:28 78 20 163/74 97 07/08/16 15:18 98.1 F 77 20 177/73 100 Intake and Output 07/08/16 07/09/16 07/09/16 23:59 07:59 15:59 Intake Total 200 / 200 200 / 200 300 / 300 Output Total 350 / 350 Balance 200 / 200 -150 / -150 300 / 300 Intake: IV Fluids 100 / 100 100 / 100 Ancef 2,000 MG In 100 / 100 100 / 100 Dextrose 5% 100 ML @ 200 mls/hr IVPB Q8HR [facility] Rx#: [id number] Oral 100 / 100 100 / 100 300 / 300 Output: Catheter 350 / 350 Other: Meal Breakfast Percent of Meal Consumed 90% Incision: clean and dry (Bilateral cancellous soft and nontender. Neurovascularly intact distally) - Labs CBC & BMP: 04/15/17 02:23 07/09/16 02:23 Labs: Abnormal lab results RBC 2.60 M/mcL (3.82-4.97) L 07/08/16 04:46 Hgb 10.0 g/dL (11.5-15.4) L 07/09/16 02:23 Hct 30.0 % (35.3-44.9) L 07/09/16 02:23 MCV 108.5 fL (83.0-100.0) H 07/08/16 04:46 MCH 35.0 pg (28.0-33.3) H 07/08/16 04:46 RDW 14.8 % (11.5-14.5) H 07/08/16 04:46 ESR 26 mm/hr (0-15) H 07/07/16 03:57 PT 12.3 Seconds (9.4-12.1) H 07/07/16 03:57 VBG pCO2 52 mmHg (41-51) H 07/07/16 03:57 VBG pO2 70 mmHg (25-40) H 07/07/16 03:57 VBG HCO3 33.0 mEq/L (21-27) H 07/07/16 03:57 Carbon Dioxide 31 mEq/L (19-29) H 07/09/16 02:23 Glucose 115 mg/dL (70-99) H 07/09/16 02:23 POC Glucose 97 (58-89) H 07/07/16 12:08 Calcium 8.2 mg/dL (8.6-10.8) L 07/09/16 02:23 Alkaline Phosphatase 129 Units/L (38-126) H 07/07/16 03:57 C-Reactive Protein 6 mg/L (Less than 5) H 07/07/16 03:57 B-Natriuretic Peptide 172 pg/mL (0-100) H 07/07/16 03:57 Albumin 3.3 g/dL (3.5-5.0) L 07/07/16 03:57 Cholesterol 219 mg/dL (< 200) H 07/07/16 03:57 LDL Cholesterol, Calc 143 mg/dL (0-99) H 07/07/16 03:57 HDL Cholesterol 62 mg/dL (40-59) H 07/07/16 03:57 Vitamin B12 198 pg/mL (213-816) L 07/07/16 03:57 Folate 2.7 ng/mL (7.0-31.4) L 07/07/16 03:57 Ur Leukocyte Esterase Small (Negative) H 07/07/16 02:19 Urine Microscopic WBC 5-15 per hpf (0-3) H 07/07/16 02:19 Ur Squamous Epith Cells Many per lpf (None-Few) H 07/07/16 02:19 - VTE Documentation of Mechanical Device: Venous foot pump, device Consult Discharge Plan - Plan Referrals: NO,PCP [Non-Partnered Physician] -
[2016-07-09] MEDS: 0.9 % Sodium Chloride 1,000 ML IVC SCH (18:55)
[2016-07-10 03:41] LABS: Basophils % 0.4 %; Eosinophils % 0.5 %; Hematocrit 27.6 % (35.3-44.9); Hemoglobin 9.2 g/dL (11.5-15.4); Immature Granulocytes % 0.3 % (0-4); Lymphocytes # 1.2 K/mcL (0.6-4.6); Lymphocytes % 15.5 %; Mean Corpuscular HGB Conc 33.3 g/dL (31.6-35.5); Mean Corpuscular Hemoglobin 35.7 pg (28.0-33.3); Mean Platelet Volume 10.5 fL (9.4-12.4); Monocytes # 0.8 K/mcL (0.0-1.3); Monocytes % 10.5 %; Neutrophils # 5.5 K/mcL (1.6-8.9); Platelet Count 129 K/mcL (140-400); Red Blood Count 2.58 M/mcL (3.82-4.97); Red Cell Distribution Width 14.1 % (11.5-14.5); Segmented Neutrophils % 72.8 %
[2016-07-10 03:54] LABS: % Iron Saturation 13 % (15-50); BUN/Creatinine Ratio 25 (6-26); Blood Urea Nitrogen 16 mg/dL (7-20); Calcium 7.8 mg/dL (8.6-10.8); Carbon Dioxide 28 mEq/L (19-29); Chloride 102 mEq/L (98-109); Glucose 113 mg/dL (70-99); Iron 21 mcg/dL (50-170); Osmolality,Calculated 286 (280-300); Potassium 3.6 mEq/L (3.5-4.5); Sodium 137 mEq/L (136-145); Transferrin 118 mg/dL (180-382); eGFR For African Americans > 60 (> 60); eGFR For Non-African Americans > 60 (> 60)
[2016-07-10 04:08] LABS: Platelet Estimate Decreased (Normal)
[2016-07-10 04:14] LABS: Ferritin 315 ng/ml (5-204)
[2016-07-10] MEDS: *HR* OxyCODONE Immed Rel 5 MG TABLET PO PRN ×2 (05:50→16:09)
[2016-07-10] MEDS: *HR* Enoxaparin 30 MG/0.3 ML SYRINGE SQ SCH ×2 (05:51→16:45)
[2016-07-10] MEDS: 0.9 % Sodium Chloride 1,000 ML IVC SCH (08:18)
[2016-07-10] MEDS: Lisinopril 20 MG TABLET PO SCH (08:19)
[2016-07-10] MEDS: Cyanocobalamin (B-12) 1,000 MCG/ML VIAL SQ SCH (08:19)
[2016-07-10] MEDS: Folic Acid 1 MG TABLET PO SCH (08:19)
[2016-07-10] MEDS: Anastrozole 1 MG TABLET PO SCH (08:19)
--- NOTE | 2016-07-10 13:08 | Internal Med Progress Note ---
Date of Encounter: 07/10/16 Time of Encounter: 08:45 - Assessment and plan (1) Intertrochanteric fracture of left femur Current Visit: Yes Status: Acute Assessment and plan: Status post left hip IM nailing. Awaiting placement to skilled rehabilitation. Continue physical therapy. Qualifiers: Encounter type: initial encounter Fracture type: closed Qualified Code(s) : S72.142A - Displaced intertrochanteric fracture of left femur, initial encounter for closed fracture (2) Dementia arising in the senium and presenium Current Visit: Yes Status: Chronic Assessment and plan: No signs of delirium. (3) Hyperosmolality and hypernatremia Current Visit: Yes Status: Resolved (4) Anemia Current Visit: Yes Status: Acute Assessment and plan: Hemoglobin 9.2 today. We will continue to monitor Qualifiers: Anemia type: other cause Other causes of anemia: other cause, not classified Qualified Code(s): D64.89 - Other specified anemias (5) HTN (hypertension) Current Visit: Yes Status: Chronic Assessment and plan: Blood pressure is elevated today. We will monitor for now. Continue lisinopril. 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 Denies any pain at this time. Sitting up in chair and trying to eat breakfast. - Constitutional Vitals: Temp Pulse Resp BP Pulse Ox 98.4 F 84 16 153/71 95 07/10/16 11:23 07/10/16 11:23 07/10/16 11:23 07/10/16 11:23 07/10/16 11:23 General appearance: Present: cachectic, cooperative, A&O X 1, underweight, answers questions appropriately (Answers some questions appropriately. Patient has underlying dementia and is not able to recollect well.) - Respiratory Respiratory exam: Present: CTAB. Absent: accessory muscle use, rales, rhonchi, wheezes - Cardiovascular Cardiovascular exam: Present: RRR, +S1, +S2. Absent: diastolic murmur, gallop, rubs, systolic murmur - GI/Abdominal GI/Abdominal exam: Present: normal bowel sounds, soft, no peritoneal signs. Absent: distended, tenderness - Extremities Exam Extremities exam: Present: warm, radial pulses palpable and symetrical. Absent : calf tenderness, cyanotic, pedal edema Internal Medicine: Result - Labs CBC & Chem 7: 07/10/16 03:10 07/10/16 03:10 Labs: Short CBC 07/10/16 Range/Units 03:10 WBC 7.5 (4.3-11.1) K/mcL Hgb 9.2 L (11.5-15.4) g/dL Hct 27.6 L (35.3-44.9) % Plt Count 129 L (140-400) K/mcL Neutrophils # 5.5 (1.6-8.9) K/mcL BMP 07/10/16 03:10 Sodium 137 Potassium 3.6 Chloride 102 Carbon Dioxide 28 BUN 16 Creatinine 0.64 Glucose 113 H Calcium 7.8 L - ABG Interpretation ABG results: PT/INR, D-dimer PT 12.3 Seconds (9.4-12.1) H 07/07/16 03:57 - VTE Documentation of Mechanical Device: Venous foot pump, device Consult Discharge Plan - Plan Referrals: NO,PCP [Non-Partnered Physician] - - Attending Attestation This document has been at least partially created by [employer] recognition technology by Dr. Streeter. Errors in grammar, wording or other phrases may exist. If errors are found after the documentation is signed, they will be addressed individually in the addendum section of this document when appropriate.
[2016-07-10] MEDS ORDERED: 0.9 % Sodium Chloride 500 ML IVC ONE ×3 (18:00→21:22)
[2016-07-10 23:10] LABS: Bilirubin,Urine Small (Negative); Blood,Urine Negative (Negative); Clarity,Urine Cloudy (Clear); Color,Urine Dark Yellow (Yellow); Glucose,Urine (UA) Normal (Normal); Ketones,Urine Negative (Negative); Leukocyte Esterase,Urine Moderate (Negative); Nitrite,Urine Negative (Negative); Protein,Urine 30 mg/dL (Neg-Trace); Specific Gravity,Urine 1.028 (1.010-1.025); Urobilinogen,Urine Normal (Normal)
[2016-07-10 23:12] LABS: Bacteria,Urine None Seen per hpf (None-Few); Hyaline Casts,Urine Few per lpf (None-Few); Squamous Epithelial Cell,Urine Many per lpf (None-Few); WBC,Urine TNTC per hpf (0-3)
[2016-07-11] MEDS: 0.9 % Sodium Chloride 1,000 ML IVC SCH (04:55)
[2016-07-11] MEDS: *HR* Enoxaparin 30 MG/0.3 ML SYRINGE SQ SCH (05:31)
[2016-07-11] MEDS: Cyanocobalamin (B-12) 1,000 MCG/ML VIAL SQ SCH (08:05)
[2016-07-11 08:07] VITALS: BP 136/70
[2016-07-11] MEDS: *HR* OxyCODONE Immed Rel 5 MG TABLET PO PRN (08:09)
[2016-07-11] MEDS: Lisinopril 20 MG TABLET PO SCH (08:09)
[2016-07-11] MEDS: Folic Acid 1 MG TABLET PO SCH (08:10)
[2016-07-11] MEDS: Anastrozole 1 MG TABLET PO SCH (08:10)
--- NOTE | 2016-07-11 09:19 | Discharge Summary ---
Date of Encounter: 07/11/16 Time of Encounter: 08:15 - Discharge Diagnosis (1) Intertrochanteric fracture of left femur Priority: Primary Status: Acute Qualifiers: Encounter type: initial encounter Fracture type: closed Qualified Code(s) : S72.142A - Displaced intertrochanteric fracture of left femur, initial encounter for closed fracture (2) Dementia arising in the senium and presenium Priority: Secondary Status: Chronic (3) Hyperosmolality and hypernatremia Priority: Secondary Status: Resolved (4) Anemia Priority: Secondary Status: Acute Qualifiers: Anemia type: other cause Other causes of anemia: other cause, not classified Qualified Code(s): D64.89 - Other specified anemias (5) HTN (hypertension) Priority: Secondary Status: Chronic Qualifiers: Hypertension type: essential hypertension Qualified Code(s): I10 - Essential (primary) hypertension (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 - Discharge Medications Prescriptions: Acetaminophen [Tylenol] 650 mg PO Q6HR PRN #30 tablet PRN Reason: Pain Nitrofurantoin (BID) [Macrobid] 100 mg PO BID #10 capsule Home Medications: Anastrozole [Arimidex] 1 mg PO DAILY 07/07/16 [History] Lisinopril [Zestril] 20 mg PO DAILY 07/07/16 [History] Paroxetine HCl [Paxil] 10 mg PO QAM 07/07/16 [History] Phenytoin ER [Dilantin ER] 300 mg PO HS 07/07/16 [History] Acetaminophen [Tylenol] 650 mg PO Q6HR PRN #30 tablet 07/11/16 [Rx] Cyanocobalamin (B-12) [Vitamin B12] 1,000 mcg SQ DAILY vial 07/11/16 [Rx] Enoxaparin [Lovenox] 30 mg SQ DAILY #7 syringe 07/11/16 [Rx] Ferrous Sulfate 325 mg PO DAILY@0800 tablet 07/11/16 [Rx] Folic Acid 5 mg PO DAILY tablet 07/11/16 [Rx] Nitrofurantoin (BID) [Macrobid] 100 mg PO BID #10 capsule 07/11/16 [Rx] Allergies/Adverse Reactions: Allergies No Known Allergies Allergy (Verified 02/29/16 11:10) Date of admission: 07/07/16 11:33 Primary care physician: Jose Mcqueen MD Consults: 07/08/16 15:58 Consult to Occupational Therapy [CONS] Routine Comment: Evaluate, develop and implement POC Consult to Orthopedic Navigator [CONS] [CONS] Routine Consult to Physical Therapy [CONS] Routine Comment: Evaluate, develop and implement POC Consult to Lead Business Analyst [CONS] Routine Reason for SW Consult: post -op hip fracture RT Post Op Consult [CONS] Routine Discharging clinician: Luis Streeter Anticipated date of discharge: 07/11/16 - Patient Status Disposition: Transfer SNF Condition: Fair Functional capacity at discharge: uses cane/walker Overall status at discharge: patient is progressing back to baseline - Discharge Instructions Follow Up With: NO,PCP [Non-Partnered Physician] - Additional Instructions: Follow up with orthopedics in 2 weeks - Diet and Activity Activity: as per physical therapy Diet: regular diet Hospital course: Ms. Donovan is a 80 year old female with a history of dementia, hypertension, hyperlipidemia was admitted here after a fall resulting in left intertrochanteric fracture of the femur. She was treated for this supportively and then underwent surgical fixation with intramedullary nailing. She has been receiving physical therapy since then and is now stable for discharge to skilled rehabilitation. Her hemoglobin levels have been stable. She also appears to be having a mild acute urinary tract infection for which she will be treated with a short course of Macrobid. She has chronic anemia which appears to be dietary related with low iron, folic acid and vitamin B12 levels. Patient has been placed on supplementation for these. - Time Spent with Patient Total time spent providing and/or coordinating discharge services: Greater than 30 minutes (40 min) - Constitutional Vitals: Temp Pulse Resp BP Pulse Ox 97.5 F L 80 18 136/70 100 07/11/16 07:32 07/11/16 07:32 07/11/16 07:32 07/11/16 07:32 07/11/16 07:32 General appearance: Present: cachectic, cooperative, A&O X 1, underweight, answers questions appropriately (Answers some questions appropriately. Patient has underlying dementia and is not able to recollect well.) - Respiratory Respiratory exam: Present: CTAB. Absent: accessory muscle use, rales, rhonchi, wheezes - Cardiovascular Cardiovascular exam: Present: RRR, +S1, +S2. Absent: diastolic murmur, gallop, rubs, systolic murmur - GI/Abdominal GI/Abdominal exam: Present: normal bowel sounds, soft, no peritoneal signs. Absent: distended, tenderness - Extremities Exam Extremities exam: Present: tenderness (left hip region), warm, radial pulses palpable and symetrical. Absent: calf tenderness, cyanotic, pedal edema - Skin Skin exam: Present: dry, intact - VTE Documentation of Mechanical Device: Venous foot pump, device - Attending Attestation This document has been at least partially created by Amplitude recognition technology by Dr. Streeter. Errors in grammar, wording or other phrases may exist. If errors are found after the documentation is signed, they will be addressed individually in the addendum section of this document when appropriate.
--- NOTE | 2016-07-11 09:35 | Physician Discharge Referral ---
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 Prognosis: Fair Aware of Diagnosis: Family Aware of Prognosis: Family - Transfer Medications Prescriptions: Acetaminophen [Tylenol] 650 mg PO Q6HR PRN #30 tablet PRN Reason: Pain Nitrofurantoin (BID) [Macrobid] 100 mg PO BID #10 capsule Home Medications: Anastrozole [Arimidex] 1 mg PO DAILY 07/07/16 [History] Lisinopril [Zestril] 20 mg PO DAILY 07/07/16 [History] Paroxetine HCl [Paxil] 10 mg PO QAM 07/07/16 [History] Phenytoin ER [Dilantin ER] 300 mg PO HS 07/07/16 [History] Acetaminophen [Tylenol] 650 mg PO Q6HR PRN #30 tablet 07/11/16 [Rx] Cyanocobalamin (B-12) [Vitamin B12] 1,000 mcg SQ DAILY vial 07/11/16 [Rx] Enoxaparin [Lovenox] 30 mg SQ DAILY #7 syringe 07/11/16 [Rx] Ferrous Sulfate 325 mg PO DAILY@0800 tablet 07/11/16 [Rx] Folic Acid 5 mg PO DAILY tablet 07/11/16 [Rx] Nitrofurantoin (BID) [Macrobid] 100 mg PO BID #10 capsule 07/11/16 [Rx] Allergies/Adverse Reactions: Allergies No Known Allergies Allergy (Verified 02/29/16 11:10) - Respiratory Orders Smoking Cessation: Smoking cessation has been advised. For more information, call the [employer] Tobacco Quit Line at 1-417-HKKA-NOW. - Ancillary Orders May consult with Dentist, [employer] Wiring Technician, Mid Level Project Manager PRN - Advance Directives Code Status: Full Code - Mobility Orders Other (per PT) - Rehabiliation Orders Rehab Potential: Fair Rehab Orders: Evaluation for Physical Therapy, Evaluation for Occupational Therapy - Treatments List/Other: Straight catheterization as needed - Diet Orders Regular CERTIFICATION: I certify that the transfer of the above named patient to an Extended Care Facility is necessary for the continuing treatment of the diagnosis listed. The above information is true and accurate reflection of patient's current condition. Confidential - Redisclosure prohibited without a patient's written consent.
== END 2016-07-11 12:30 | DRG 481 ==
LOC: EMEROO 21:47 → 3NENU 21:47 → SUATTDRO 23:21 → 3NENU 23:52
PROVIDERS: ADMIT Internal Medicine; ATTEND Internal Medicine

== ENCOUNTER 2016-10-07 03:22 | Inpatient (IN) ==
[2016-10-07] MEDS ORDERED: Ipratropium/Albuterol Neb 3 ML IH ONE (03:39)
--- NOTE | 2016-10-07 03:54 | Emergency Department Note ---
Disposition Clinical Impression: Respiratory distress, acute, Pleural effusion Disposition: Admitted As Inpatient Condition: Good Referrals: Salas Matta MD [Primary Care Provider] - Forms: ED Satisfaction Letter SOB HPI - General Chief Complaint: ED Shortness of Breath/Dyspnea Stated Complaint: ZOLTAN Time Seen by Provider: 10/07/16 03:32 Source: EMS Limitations: altered mental status - History of Present Illness Patient presents to the ED from assisted facility with shortness of breath. 20 minutes prior to arrival. She was found in her room, working hard to breathe. EMS reports initial oxygen saturation 72%, improved to 91% on nonrebreather and after 1 DuoNeb. Unknown medical history. Records from facility shows a left hip fracture. No known next of kin, but is a full code. Presenting in moderate respiratory distress. Altered, but apparently at baseline due to history of dementia. Patient unable to answer any questions - Related Data Home Medications Medication Instructions Recorded Confirmed Anastrozole [Arimidex] 1 mg PO DAILY 07/07/16 07/07/16 Lisinopril [Zestril] 20 mg PO DAILY 07/07/16 07/07/16 Paroxetine HCl [Paxil] 10 mg PO QAM 07/07/16 07/07/16 Phenytoin ER [Dilantin ER] 300 mg PO HS 07/07/16 07/07/16 Previous Rx's Medication Instructions Recorded Acetaminophen [Tylenol] 650 mg PO Q6HR PRN #30 tablet 07/11/16 Cyanocobalamin (B-12) [Vitamin B12] 1,000 mcg SQ DAILY vial 07/11/16 Enoxaparin [Lovenox] 30 mg SQ DAILY #7 syringe 07/11/16 Ferrous Sulfate 325 mg PO DAILY@0800 tablet 07/11/16 Folic Acid 5 mg PO DAILY tablet 07/11/16 Nitrofurantoin (BID) [Macrobid] 100 mg PO BID #10 capsule 07/11/16 Allergies Allergy/AdvReac Type Severity Reaction Status Date / Time No Known Allergies Allergy Verified 02/29/16 11:10 Limitations: ROS unobtainable due to patients medical condition Past Medical History - Past Medical History Attestation: Yes The following information was validated with the patient. Source: unable to obtain, old records reviewed Medical history: Reports: dementia, hyperlipidemia, hypertension, seizures, syncope, other Surgical history: Reports: other Psychiatric history: Reports: no psych history DECONTAMINATION TECHNICIAN history: Reports: no DECONTAMINATION TECHNICIAN history - Social History Smoking Status: Never smoker Smokeless Tobacco Status: No Alcohol use: Reports: none Drug use: Reports: none Physical Exam - General Limitations: altered mental status General appearance: in distress - Head Head exam: atraumatic - Eye Eye exam: Present: PERRL - ENT ENT exam: mucous membranes dry - Neck Neck exam: Present: normal inspection, full ROM - Chest Chest inspection: Present: normal inspection, symmetric chest wall rise - Respiratory Respiratory exam: Present: respiratory distress (Moderate), wheezes (Bilateral upper), accessory muscle use, other (Decreased breath sounds lower lobes). Absent: normal lung sounds bilaterally - Cardiovascular Cardiovascular exam: Present: tachycardia - Abdominal Exam Abdominal exam: Present: soft, Non-Tender - Extremities Exam Extremities exam: Absent: pedal edema - Neurological Exam Neurological exam: Absent: alert - Skin Skin exam: Present: warm, dry, intact, pallor. Absent: normal color Course Vital Signs Temperature 97.7 F 10/07/16 03:23 Pulse Rate 105 10/07/16 03:23 Respiratory Rate 48 10/07/16 03:23 Blood Pressure 188/93 10/07/16 03:23 O2 Sat by Pulse Oximetry 89 10/07/16 03:23 Temperature 99.3 F 10/07/16 03:53 Pulse Rate 78 10/07/16 06:34 Respiratory Rate 25 10/07/16 06:34 Blood Pressure 142/69 10/07/16 06:34 O2 Sat by Pulse Oximetry 97 10/07/16 06:34 Oxygen Delivery Oxygen Delivery Bipap Shortness of Breath/Dyspnea - Medical Records Medical records reviewed: Yes I reviewed the patient's medical records. - Lab Data Lab results reviewed: Yes I reviewed the patient's lab results. Result diagrams: 10/07/16 03:34 10/07/16 03:34 Lab Results 10/07/16 10/07/16 10/07/16 Range/Units 03:34 03:34 03:34 WBC 12.0 H (4.3-11.1) K/mcL RBC 3.58 L (3.82-4.97) M/mcL Hgb 11.6 (11.5-15.4) g/dL Hct 37.7 (35.3-44.9) % MCV 105.3 H (83.0-100.0) fL MCH 32.4 (28.0-33.3) pg MCHC 30.8 L (31.6-35.5) g/dL RDW 14.5 (11.5-14.5) % Plt Count 264 (140-400) K/mcL MPV 10.6 (9.4-12.4) fL Immature Gran % 0.4 (0-4) % Seg Neutrophils % 67.5 % Lymphocytes % 19.2 % Monocytes % 10.4 % Eosinophils % 1.8 % Basophils % 0.7 % Neutrophils # 8.1 (1.6-8.9) K/mcL Lymphocytes # 2.3 (0.6-4.6) K/mcL Monocytes # 1.3 (0.0-1.3) K/mcL Eosinophils # 0.2 (0.0-0.6) K/mcL Basophils # 0.1 (0.0-0.2) K/mcL Immature Plt Fraction 5.4 (1.1-6.1) % PT 12.4 H (9.4-12.1) Seconds INR 1.1 APTT 29.8 (26.0-36.0) Seconds ABG pH (7.32-7.45) pH Units ABG pCO2 (35-45) mmHg ABG pO2 (85-104) mmHg ABG HCO3 (21-27) mEQ/L ABG Total CO2 (20-26) mEq/L ABG O2 Saturation (95-98) % ABG Base Excess (-2.0 to 3.0) mEq/L Blood Gas Modality Inspired O2 % Sodium 142 (136-145) mEq/L Potassium 4.3 (3.5-4.5) mEq/L Chloride 109 (98-109) mEq/L Carbon Dioxide 25 (19-29) mEq/L BUN 18 (7-20) mg/dL Creatinine 0.67 (0.57-1.11) mg/dL Est GFR ( Amer) > 60 (> 60) Est GFR (Non-Af Amer) > 60 (> 60) BUN/Creatinine Ratio 27 H (6-26) Glucose 207 H (70-99) mg/dL Calculated Osmolality 302 H (280-300) Lactic Acid (0.5-2.2) mmol/L Calcium 9.0 (8.6-10.8) mg/dL Phosphorus 3.9 (2.3-4.7) mg/dL Magnesium 2.1 (1.6-2.6) mg/dL Total Bilirubin 0.5 (0.2-1.2) mg/dL Direct Bilirubin 0.1 (0.0-0.5) mg/dL Indirect Bilirubin 0.4 (0.0-1.2) mg/dL AST 22 (5-34) Units/L ALT 15 (0-55) Units/L Alkaline Phosphatase 256 H (38-126) Units/L Troponin I (0-0.03) ng/mL B-Natriuretic Peptide (0-100) pg/mL Serum Total Protein 7.5 (6.0-8.3) g/dL Albumin 2.8 L (3.5-5.0) g/dL Globulin 4.7 H (2.4-3.5) g/dL Albumin/Globulin Ratio 0.6 L (1.1-2.2) Urine Color (Yellow) Urine Clarity (Clear) Urine pH (5.0-8.0) pH Units Ur Specific [place] (1.010-1.025) Urine Protein (Neg-Trace) mg/dL Urine Glucose (UA) (Normal) mg/dL Urine Ketones (Negative) mg/dL Urine Blood (Negative) Urine Nitrite (Negative) Urine Bilirubin (Negative) Urine Urobilinogen (Normal) mg/dL Ur Leukocyte Esterase (Negative) Urine Microscopic RBC (0-3) per hpf Urine Microscopic WBC (0-3) per hpf Ur Squamous Epith Cells (None-Few) per lpf Urine Bacteria (None-Few) per hpf Hyaline Casts (None-Few) per lpf Ur Culture Indicated? (NO) 10/07/16 10/07/16 10/07/16 Range/Units 03:34 03:34 03:34 WBC (4.3-11.1) K/mcL RBC (3.82-4.97) M/mcL Hgb (11.5-15.4) g/dL Hct (35.3-44.9) % MCV (83.0-100.0) fL MCH (28.0-33.3) pg MCHC (31.6-35.5) g/dL RDW (11.5-14.5) % Plt Count (140-400) K/mcL MPV (9.4-12.4) fL Immature Gran % (0-4) % Seg Neutrophils % % Lymphocytes % % Monocytes % % Eosinophils % % Basophils % % Neutrophils # (1.6-8.9) K/mcL Lymphocytes # (0.6-4.6) K/mcL Monocytes # (0.0-1.3) K/mcL Eosinophils # (0.0-0.6) K/mcL Basophils # (0.0-0.2) K/mcL Immature Plt Fraction (1.1-6.1) % PT (9.4-12.1) Seconds INR APTT (26.0-36.0) Seconds ABG pH (7.32-7.45) pH Units ABG pCO2 (35-45) mmHg ABG pO2 (85-104) mmHg ABG HCO3 (21-27) mEQ/L ABG Total CO2 (20-26) mEq/L ABG O2 Saturation (95-98) % ABG Base Excess (-2.0 to 3.0) mEq/L Blood Gas Modality Inspired O2 % Sodium (136-145) mEq/L Potassium (3.5-4.5) mEq/L Chloride (98-109) mEq/L Carbon Dioxide (19-29) mEq/L BUN (7-20) mg/dL Creatinine (0.57-1.11) mg/dL Est GFR ( Amer) (> 60) Est GFR (Non-Af Amer) (> 60) BUN/Creatinine Ratio (6-26) Glucose (70-99) mg/dL Calculated Osmolality (280-300) Lactic Acid 1.9 (0.5-2.2) mmol/L Calcium (8.6-10.8) mg/dL Phosphorus (2.3-4.7) mg/dL Magnesium (1.6-2.6) mg/dL Total Bilirubin (0.2-1.2) mg/dL Direct Bilirubin (0.0-0.5) mg/dL Indirect Bilirubin (0.0-1.2) mg/dL AST (5-34) Units/L ALT (0-55) Units/L Alkaline Phosphatase (38-126) Units/L Troponin I 0.05 H* (0-0.03) ng/mL B-Natriuretic Peptide 303 H (0-100) pg/mL Serum Total Protein (6.0-8.3) g/dL Albumin (3.5-5.0) g/dL Globulin (2.4-3.5) g/dL Albumin/Globulin Ratio (1.1-2.2) Urine Color (Yellow) Urine Clarity (Clear) Urine pH (5.0-8.0) pH Units Ur Specific [place] (1.010-1.025) Urine Protein (Neg-Trace) mg/dL Urine Glucose (UA) (Normal) mg/dL Urine Ketones (Negative) mg/dL Urine Blood (Negative) Urine Nitrite (Negative) Urine Bilirubin (Negative) Urine Urobilinogen (Normal) mg/dL Ur Leukocyte Esterase (Negative) Urine Microscopic RBC (0-3) per hpf Urine Microscopic WBC (0-3) per hpf Ur Squamous Epith Cells (None-Few) per lpf Urine Bacteria (None-Few) per hpf Hyaline Casts (None-Few) per lpf Ur Culture Indicated? (NO) 10/07/16 10/07/16 10/07/16 Range/Units 04:17 05:43 05:52 WBC (4.3-11.1) K/mcL RBC (3.82-4.97) M/mcL Hgb (11.5-15.4) g/dL Hct (35.3-44.9) % MCV (83.0-100.0) fL MCH (28.0-33.3) pg MCHC (31.6-35.5) g/dL RDW (11.5-14.5) % Plt Count (140-400) K/mcL MPV (9.4-12.4) fL Immature Gran % (0-4) % Seg Neutrophils % % Lymphocytes % % Monocytes % % Eosinophils % % Basophils % % Neutrophils # (1.6-8.9) K/mcL Lymphocytes # (0.6-4.6) K/mcL Monocytes # (0.0-1.3) K/mcL Eosinophils # (0.0-0.6) K/mcL Basophils # (0.0-0.2) K/mcL Immature Plt Fraction (1.1-6.1) % PT (9.4-12.1) Seconds INR APTT (26.0-36.0) Seconds ABG pH 7.33 (7.32-7.45) pH Units ABG pCO2 53 H (35-45) mmHg ABG pO2 75 L (85-104) mmHg ABG HCO3 27.9 H (21-27) mEQ/L ABG Total CO2 29.5 H (20-26) mEq/L ABG O2 Saturation 94 L (95-98) % ABG Base Excess 1.1 (-2.0 to 3.0) mEq/L Blood Gas Modality BIPAP Inspired O2 60 % Sodium (136-145) mEq/L Potassium (3.5-4.5) mEq/L Chloride (98-109) mEq/L Carbon Dioxide (19-29) mEq/L BUN (7-20) mg/dL Creatinine (0.57-1.11) mg/dL Est GFR ( Amer) (> 60) Est GFR (Non-Af Amer) (> 60) BUN/Creatinine Ratio (6-26) Glucose (70-99) mg/dL Calculated Osmolality (280-300) Lactic Acid 2.0 (0.5-2.2) mmol/L Calcium (8.6-10.8) mg/dL Phosphorus (2.3-4.7) mg/dL Magnesium (1.6-2.6) mg/dL Total Bilirubin (0.2-1.2) mg/dL Direct Bilirubin (0.0-0.5) mg/dL Indirect Bilirubin (0.0-1.2) mg/dL AST (5-34) Units/L ALT (0-55) Units/L Alkaline Phosphatase (38-126) Units/L Troponin I (0-0.03) ng/mL B-Natriuretic Peptide (0-100) pg/mL Serum Total Protein (6.0-8.3) g/dL Albumin (3.5-5.0) g/dL Globulin (2.4-3.5) g/dL Albumin/Globulin Ratio (1.1-2.2) Urine Color Yellow (Yellow) Urine Clarity Cloudy A (Clear) Urine pH 5.5 (5.0-8.0) pH Units Ur Specific [place] 1.025 (1.010-1.025) Urine Protein 100 H (Neg-Trace) mg/dL Urine Glucose (UA) Normal (Normal) mg/dL Urine Ketones Negative (Negative) mg/dL Urine Blood Small H (Negative) Urine Nitrite Negative (Negative) Urine Bilirubin Negative (Negative) Urine Urobilinogen Normal (Normal) mg/dL Ur Leukocyte Esterase Moderate H (Negative) Urine Microscopic RBC 5-15 H (0-3) per hpf Urine Microscopic WBC TNTC H (0-3) per hpf Ur Squamous Epith Cells Many H (None-Few) per lpf Urine Bacteria None Seen (None-Few) per hpf Hyaline Casts Moderate H (None-Few) per lpf Ur Culture Indicated? YES A (NO) - Radiology Data Radiology results reviewed: Yes I reviewed the patient's radiology results. - EKG Data EKG attestation: Yes I reviewed and interpreted this EKG. EKG results narrative: Sinus tach, rate 101, AL interval 145, QRS 89, QTC 396, left axis deviation, PVCs Attestation Statement - Attestation Attestation: I, José Manuel De, examined this patient and my medical decision-making was reviewed with the EQUIPMENT OR MACHINERY CLEANER/PA/Advanced Practice Nurse/Resident Physician. I agree with the documented findings, disposition and treatment plan as described except to the extent set forth below. 80-year-old female presents to emergency department in respiratory distress. EMS states the patient was satting 9072% upon their arrival. She improved after administration of DuoNeb and nonrebreather. In the emergency department the patient has respiratory distress, is tachypnea, hypertensive and tachycardic. She is unable to give a history regarding her case her presentation. On physical exam the patient skin is very pale. She has crackles in the bilateral lung samaniego and she is in respiratory distress. Patient placed on a BiPAP and had significant improvement of symptoms after observation for 10 minutes. CTA of the chest did not reveal large PE. It did however show bilateral plural effusions and edema of the chest wall. Urinary tract infection noted on urinalysis. Patient started on ceftriaxone emergency department. Patient is now resting comfortably with BiPAP and is comfortable with the plan for admission to hospital for continuation of care.
[2016-10-07 04:00] LABS: Basophils # 0.1 K/mcL (0.0-0.2); Basophils % 0.7 %; Eosinophils # 0.2 K/mcL (0.0-0.6); Eosinophils % 1.8 %; Hematocrit 37.7 % (35.3-44.9); Hemoglobin 11.6 g/dL (11.5-15.4); Immature Granulocytes % 0.4 % (0-4); Immature Platelets 5.4 % (1.1-6.1); Lymphocytes # 2.3 K/mcL (0.6-4.6); Lymphocytes % 19.2 %; Mean Corpuscular HGB Conc 30.8 g/dL (31.6-35.5); Mean Corpuscular Hemoglobin 32.4 pg (28.0-33.3); Mean Corpuscular Volume 105.3 fL (83.0-100.0); Mean Platelet Volume 10.6 fL (9.4-12.4); Monocytes # 1.3 K/mcL (0.0-1.3); Monocytes % 10.4 %; Neutrophils # 8.1 K/mcL (1.6-8.9); Platelet Count 264 K/mcL (140-400); Red Blood Count 3.58 M/mcL (3.82-4.97); Red Cell Distribution Width 14.5 % (11.5-14.5); Segmented Neutrophils % 67.5 %
[2016-10-07] MEDS: 0.9 % Sodium Chloride 1,000 ML IVC SCH ×2 (04:08→05:28)
[2016-10-07 04:11] LABS: INR 1.1; Prothrombin Time 12.4 Seconds (9.4-12.1)
[2016-10-07 04:14] LABS: Activated Partial Thrombo Time 29.8 Seconds (26.0-36.0)
[2016-10-07 04:15] LABS: Alanine Aminotransferase 15 Units/L (0-55); Albumin 2.8 g/dL (3.5-5.0); Albumin/Globulin Ratio 0.6 (1.1-2.2); Alkaline Phosphatase 256 Units/L (38-126); Aspartate Amino Transferase 22 Units/L (5-34); BUN/Creatinine Ratio 27 (6-26); Bilirubin,Direct 0.1 mg/dL (0.0-0.5); Bilirubin,Indirect 0.4 mg/dL (0.0-1.2); Bilirubin,Total 0.5 mg/dL (0.2-1.2); Blood Urea Nitrogen 18 mg/dL (7-20); Carbon Dioxide 25 mEq/L (19-29); Chloride 109 mEq/L (98-109); Globulin 4.7 g/dL (2.4-3.5); Glucose 207 mg/dL (70-99); Magnesium 2.1 mg/dL (1.6-2.6); Osmolality,Calculated 302 (280-300); Phosphorous 3.9 mg/dL (2.3-4.7); Potassium 4.3 mEq/L (3.5-4.5); Sodium 142 mEq/L (136-145); Total Protein 7.5 g/dL (6.0-8.3); eGFR For African Americans > 60 (> 60); eGFR For Non-African Americans > 60 (> 60)
[2016-10-07] MEDS ORDERED: Nitroglycerin 1 INCH/GM PACKET TP ONE (04:22)
[2016-10-07 04:25] LABS: ABG Base Excess 1.1 mEq/L (-2.0 to 3.0); ABG HCO3 27.9 mEQ/L (21-27); ABG Oxygen Saturation 94 % (95-98); ABG PCO2 53 mmHg (35-45); ABG PH 7.33 pH Units (7.32-7.45); ABG PO2 75 mmHg (85-104); ABG TCO2 29.5 mEq/L (20-26)
[2016-10-07 04:31] LABS: Blood Gas FiO2 60 %
[2016-10-07 05:56] LABS: Bilirubin,Urine Negative (Negative); Blood,Urine Small (Negative); Clarity,Urine Cloudy (Clear); Color,Urine Yellow (Yellow); Glucose,Urine (UA) Normal (Normal); Ketones,Urine Negative (Negative); Leukocyte Esterase,Urine Moderate (Negative); Nitrite,Urine Negative (Negative); PH,Urine 5.5 pH Units (5.0-8.0); Protein,Urine 100 mg/dL (Neg-Trace); Specific Gravity,Urine 1.025 (1.010-1.025); Urobilinogen,Urine Normal (Normal)
[2016-10-07 05:59] LABS: Bacteria,Urine None Seen per hpf (None-Few); Hyaline Casts,Urine Moderate per lpf (None-Few); Squamous Epithelial Cell,Urine Many per lpf (None-Few); WBC,Urine TNTC per hpf (0-3)
[2016-10-07] MEDS ORDERED: Naloxone 0.4 MG/ML INJ IVP PRN (09:37)
[2016-10-07] MEDS ORDERED: Acetaminophen 325 MG TABLET PO PRN (09:37)
[2016-10-07] MEDS ORDERED: PAROXETINE HCL 10 MG PO SCH (09:45)
[2016-10-07] MEDS ORDERED: Aspirin 325 MG TABLET PO ONE (11:11)
[2016-10-07] MEDS ORDERED: *HR* Heparin 5,000 UNIT/ML VIAL IVP PRN (11:13)
[2016-10-07] MEDS ORDERED: *HR* Heparin 5,000 UNIT/ML VIAL IVP ONE (11:13)
--- NOTE | 2016-10-07 11:30 | Internal Med History&Physical ---
Date of Encounter: 10/07/16 Time of Encounter: 08:30 Assessment and Plan (1) Elevated troponin Current visit: Yes Status: Acute Troponin noted to be 0.05, second set 0.38. This could be related to significant hypoxemia but non-ST elevation AR cannot be ruled out. We will repeat EKG, continue telemetry monitoring. Will give aspirin and start anticoagulation with IV heparin. Cardiology consult. (2) Pleural effusion Current visit: Yes Status: Acute CT angiogram of chest showed no evidence of major pulmonary embolism, cannot assess segmental branches due to technical difficulty, shows moderate bilateral pleural effusions and compressive atelectasis. Patient does have acute volume overload and hypoxic respiratory failure, with slightly elevated BNP, possibly a cute CHF. Continue IV Lasix, supplemental oxygen. Patient was noted to be requiring noninvasive positive pressure ventilation but currently is able to tolerate nasal cannula. Wean down FiO2 as tolerated. Low suspicion for pneumonia. Check 2-D echocardiogram. High risk for complications. (3) Acute respiratory failure with hypoxia Current visit: Yes Status: Acute Plan as above. (4) UTI (urinary tract infection) Current visit: Yes Status: Acute Urinalysis shows TNTC WBC, numerous squamous cells with no bacteria. Doubt if this is true UTI. Continue IV Rocephin and follow up urine culture. Qualifiers: Urinary tract infection type: site unspecified Hematuria presence: without hematuria Qualified Code(s): N39.0 - Urinary tract infection, site not specified (5) Seizure disorder Current visit: Yes Status: Chronic Continue Dilantin and seizure precautions. (6) Dementia arising in the senium and presenium Current visit: Yes Status: Chronic Supportive care and fall precautions. Patient has no legal guardian, sister is in the process of obtaining legal guardianship according to care home documents. Patient remains full code at this time. (7) Anemia Current visit: Yes Status: Chronic Noted to have likely nutritional anemia and is on ferrous sulfate and folate supplements. Continue the same. No signs of active bleeding and hemoglobin is stable. Qualifiers: Anemia type: iron deficiency Iron deficiency anemia type: inadequate dietary iron intake Qualified Code(s): D50.8 - Other iron deficiency anemias (8) HTN (hypertension) Current visit: Yes Status: Chronic Qualifiers: Hypertension type: essential hypertension Qualified Code(s): I10 - Essential (primary) hypertension Internal Medicine - H&P: HPI Chief complaint: Respiratory distress Admitted From: Emergency Dept Plans for Post Hospital Care: Transfer [facility] History of present illness: Ms. Donovan is a 80 year old female care home resident with documented history of hypertension, dementia, seizure disorder was sent from the care home with respiratory distress. Patient has underlying dementia and is unable to provide any history, which is obtained from review of previous medical records and emergency room records. Patient was reportedly doing well until early this morning when she was found to be in respiratory distress in her room , breathing hard. No reported nausea, vomiting, chest pain or abdominal pain. She was noted to be hypoxic on room air and was placed on nonrebreather mask and brought to the emergency room. She continued to be tachypneic, slightly tachycardic and very hypoxic and was eventually placed on BiPAP with significant improvement. CT angiogram of chest was done which showed bilateral pleural effusions and patient is admitted to hospitalist service for further management. Past Med Surg Social Fam HX - Past Medical History Medical history: cancer (Breast cancer), dementia, hyperlipidemia, hypertension , seizures, syncope, other Psychiatric history: anxiety, depression - Past Surgical History Surgical History: no surgical history (Cannot be obtained due to patient's mental status), other - Social History Smoking Status: Never smoker Smokeless Tobacco Status: No Alcohol use: none Drug use: none Occupational status: retired Current living situation: [facility] Activity Level: Mostly sedentary Recent Out of Country Travel Within the Last 8 Weeks: No - Family History Brother Living Status: Cause of : stroke Hx Family Cardiac Disorders: No Hx Family Respiratory Disorders: Yes Hx Family Neurologic Disorders: Yes Hx Family Medical Disorders: Yes Internal Medicine - H&P: Meds Anastrozole [Arimidex] 1 mg PO DAILY 07/07/16 [History] Lisinopril [Zestril] 20 mg PO DAILY 07/07/16 [History] Paroxetine HCl [Paxil] 10 mg PO QAM 07/07/16 [History] Phenytoin ER [Dilantin ER] 300 mg PO HS 07/07/16 [History] Acetaminophen [Tylenol] 650 mg PO Q6HR PRN #30 tablet 07/11/16 [Rx] Ferrous Sulfate 325 mg PO DAILY@0800 tablet 07/11/16 [Rx] Folic Acid 5 mg PO DAILY tablet 07/11/16 [Rx] Cephalexin [Keflex] 500 mg PO QID 10/07/16 [History] Cyanocobalamin (Vitamin B-12) [Vitamin B12] 1,000 mcg PO DAILY 10/07/16 [History ] Allergies No Known Allergies Allergy (Verified 02/29/16 11:10) All Systems PM: A 10-system review of systems was performed and is negative for pertinent findings except as documented above in the HPI. - Constitutional Constitutional: no chills, no fever(s), no night sweats - EENT Eyes: no change in vision, no discharge, no pain, no photophobia Ears: no ear discharge, no ear pain, no tinnitus Nose, mouth and throat: no dysphagia, no nasal discharge, no neck pain, no sore throat - Cardiovascular Cardiovascular ROS IM: diaphoresis, dyspnea, edema - Respiratory Respiratory: dyspnea, dyspnea on exertion - Gastrointestinal Gastrointestinal: no abdominal pain, no diarrhea, no hematemesis, no hematochezia, no melena, no nausea, no vomiting - Genitourinary Genitourinary: no change in urinary stream, no dysuria, no flank pain, no hematuria - Musculoskeletal Musculoskeletal ROS IM: no numbness, no tingling - Integumentary Integumentary IM: no rash, no unusual bruising - Neurological Neurological ROS: no confusion, no convulsions, no focal weakness, no numbness, no tingling, no tremor(s) - Hematologic/Lymphatic Hematologic/Lymphatic: no easy bruising - Constitutional Vitals: Temp Pulse Resp BP Pulse Ox 96.6 F L 75 20 150/78 99 10/07/16 08:32 10/07/16 08:32 10/07/16 08:32 10/07/16 08:32 10/07/16 08:32 General appearance: Present: A&O X 1 (Drowsy and lethargic. Opens eyes but unable to speak much.). Absent: answers questions appropriately - Respiratory Respiratory exam: Present: rales (Bibasal rales and coarse breath sounds). Absent: accessory muscle use, rhonchi, wheezes - Cardiovascular Cardiovascular exam: Present: RRR, +S1, +S2. Absent: diastolic murmur, gallop, rubs, systolic murmur - GI/Abdominal GI/Abdominal exam: Present: normal bowel sounds, soft, no peritoneal signs. Absent: distended, tenderness - Extremities Exam Extremities exam: Present: pedal edema (1+ pedal edema bilaterally feet and lower legs), warm, radial pulses palpable and symetrical. Absent: calf tenderness, cyanotic - Neurological Exam Neurological exam: Present: altered, CN II-XII intact, no focal deficits. Absent: pronater drift, facial droop, speech deficit - Skin Skin exam: Present: dry, intact, pallor Internal Med - H&P Results - Labs CBC & Chem 7: 10/07/16 03:34 10/07/16 03:34 Labs: Cardiac Enzymes 10/07/16 Range/Units 10:04 Troponin I 0.38 H* (0-0.03) ng/mL - EKG Data -: EKG Interpreted by Myself (Sinus tachycardia at 101 bpm, frequent PVCs) EKG shows normal: sinus rhythm Rate: tachycardia
[2016-10-07] MEDS: Folic Acid 1 MG TABLET PO SCH (11:49)
[2016-10-07] MEDS: Lisinopril 20 MG TABLET PO SCH (11:50)
[2016-10-07] MEDS ORDERED: Furosemide 20 MG/2 ML VIAL IVP ONE (12:27)
[2016-10-07] MEDS: Heparin 25,000 UNIT/500 ML D5W 25,000 UNIT/500 ML MLS IVC SCH (12:29)
[2016-10-07] MEDS: Ipratropium/Albuterol Neb 3 ML IH PRN ×2 (12:55→16:09)
--- NOTE | 2016-10-07 13:18 | Cardiology Consult Note ---
Date of Encounter: 10/07/16 Time of Encounter: 12:45 Assessment and Plan (1) Acute respiratory failure with hypoxia Current Visit: Yes Status: Acute Per cardiology: -SpO2 at assisted noted to be 72%. -Currently requiring Bipap with FiO2 45%. -Management per primary service. -May be contributing to elevated troponin. (2) Pleural effusion Current Visit: Yes Status: Acute Per cardiology: -Bilateral moderate to large pleural effusion noted per Chest CT. -On lasix. -Echo pending. -May be related to CHF. -Management per primary service. (3) Elevated troponin Current Visit: Yes Status: Acute Per cardiology: -Troponins 0.05, 0.38. -Currently on heparin drip -Denies chest pain, however patient is poor historian. -ECG with no ischemic changes. -ECho pending. -Echo 2012 LVEF 60%, no diastolic dysfunction, no wall motion abnormalities. -Possible demand ischemia related to hypoxia. NO cardiac rehab warranted at this time. -Will start asa, beta anahi, and statin. -FUrther recommendations pending echo and third troponin. -Of note, patient would not be a good candidate for further invasive cardiac work up due to baseline severe dementia. Discussion w patient/family: The assessment and plan as outlined above was discussed with the patient who expressed understanding and agreement. All questions were answered. Thank you for involving us in the care of your patient. Please call with any questions. Discussed and reviewed with . History of Present Illness Consult date: 10/07/16 Requesting physician: Emily Lindsay Consult reason: Acute respiratory failure, CHF, elevated troponin Chief complaint: shortness of breath History of present illness: Ms. Donovan is a 80 year old female with a relevant past medical history of CA , seizure, HTN, hyperlipidemia, PVD, carotid stenosis, severe dememtia. Patient is a resident at a assisted and was noted to be short of breath. SpO2 at assisted was 72%. Patient was taken to [facility] and admitted. Cardiology has been consulted for elevated troponin. Patient currently on Bipap with a FiO2 45% . Patient is awake and oriented to person. Patient denies chest pain. Past Med Surg Social Fam HX - Past Medical History Attestation: Yes The following information was validated with the patient. Source: patient, old records reviewed Medical history: cancer (Breast cancer), dementia, hyperlipidemia, hypertension , seizures, syncope, other Psychiatric history: anxiety, depression - Past Surgical History Surgical History: no surgical history (Cannot be obtained due to patient's mental status), other - Social History Smoking Status: Never smoker Smokeless Tobacco Status: No Alcohol use: none Drug use: none - Family History Brother Living Status: Cause of : stroke Hx Family Cardiac Disorders: No Hx Family Respiratory Disorders: Yes Hx Family Neurologic Disorders: Yes Hx Family Medical Disorders: Yes Medications and Allergies Anastrozole [Arimidex] 1 mg PO DAILY 07/07/16 [History] Lisinopril [Zestril] 20 mg PO DAILY 07/07/16 [History] Paroxetine HCl [Paxil] 10 mg PO QAM 07/07/16 [History] Phenytoin ER [Dilantin ER] 300 mg PO HS 07/07/16 [History] Acetaminophen [Tylenol] 650 mg PO Q6HR PRN #30 tablet 07/11/16 [Rx] Ferrous Sulfate 325 mg PO DAILY@0800 tablet 07/11/16 [Rx] Folic Acid 5 mg PO DAILY tablet 07/11/16 [Rx] Cephalexin [Keflex] 500 mg PO QID 10/07/16 [History] Cyanocobalamin (Vitamin B-12) [Vitamin B12] 1,000 mcg PO DAILY 10/07/16 [History ] Allergies No Known Allergies Allergy (Verified 02/29/16 11:10) All Systems Review: A 10-system review of systems was performed and is negative for pertinent findings except as documented above in the HPI. - Cardiovascular Cardiovascular: as per HPI, dyspnea at rest, dyspnea on exertion Physical Examination Vital Signs, Last 4 Hours Temp Pulse Resp BP Pulse Ox 10/07/16 12:58 32 155/77 99 10/07/16 11:43 97.2 F L 84 16 155/77 93 General: Conversant, Other (On Bipap. ) HEENT: Atraumatic, Normocephaly, Mucus Membranes Moist Neck: No JVD, Normal carotid pulses Cardiac: Reg Rate and Rhythm, Normal S1 and S2, No Murmur Lungs: Other (Lung sounds diminished throughout. ) Neuro: Alert and responsive, No focal deficits noted Abdomen: Soft, Non-Tender Skin: No rashes noted on visualized skin Musculoskeletal: No Chest Wall Tenderness Extremities: No Clubbing, No Cyanosis, Normal Pulses, Other (1+ bilateral lower extremity pitting edema.) Results 10/07/16 03:34 10/07/16 03:34 Lab Results Impressions Chest X-Ray 10/07/16 03:30 IMPRESSION: Bilateral pleural effusions with extensive airspace disease which probably represents a combination of edema and atelectasis. Superimposed pneumonia cannot be excluded. D/ / Jeo Castanon MD / Joe Castanon MD Interpreting Provider: Joe Castanon MD Chest CTA 10/07/16 05:21 IMPRESSION: 1. No definite scan evidence for pulmonary embolus on a limited study. Small, peripheral emboli cannot be excluded. 2. Moderate to large bilateral pleural effusions with atelectasis and pulmonary edema. 3. Coronary artery disease. 4. Enlarging low-density liver lesion is nonspecific though metastatic disease must be considered. Both cysts and hemangiomas can enlarge over time. 5. Inflammation or tumor infiltration of the right pectoralis major. 6. Age-indeterminate fracture of the anterior right 3rd rib. D/ / Joe Castanon MD / Joe Castanon MD Interpreting Provider: Joe Castanon MD Active Medications Acetaminophen (Tylenol) 650 mg PO Q6HR PRN PRN Reason: Mild Pain (1-3) Stop: 04/08/17 09:38 Albuterol/Ipratropium (Duoneb) 3 ml IH [id number] PRN; Protocol PRN Reason: Shortness Of Breath/Wheezing Stop: 04/08/17 12:28 Last Admin: 10/07/16 12:55 Dose: 3 ml Anastrozole (Arimidex) 1 mg PO DAILY [facility] Stop: 04/09/17 09:01 Ferrous Sulfate (Ferrous Sulfate) 325 mg PO DAILY@0800 GOV[facility] Stop: 04/09/17 08:01 Folic Acid (Folic Acid) 5 mg PO DAILY [facility] Stop: 04/08/17 09:46 Last Admin: 10/07/16 11:49 Dose: 5 mg Furosemide (Lasix) 20 mg IVP BID [facility] Stop: 04/08/17 21:01 Heparin Sodium (Porcine) (Heparin) 3,600 unit 60 unit/kg (3600 unit) IVP Q6HR PRN PRN Reason: SEE COMMENTS Stop: 04/08/17 11:14 Heparin Sodium (Porcine) (Heparin) 1,800 unit 30 unit/kg (1800 unit) IVP Q6H PRN PRN Reason: SEE COMMENTS Stop: 04/08/17 11:14 Ceftriaxone Sodium 1,000 mg/ (Dextrose) 100 mls @ 200 mls/hr IVPB Q24H GOVIND Stop: 04/08/17 10:01 Last Admin: 10/07/16 11:50 Dose: Not Given Heparin Sodium/Dextrose (Heparin 25,000 Unit/500 Ml D5w) 25,000 unit in 500 mls @ 14.328 mls/hr IVC .Q24H GOVIND; 12 UNIT/KG/HR PRN Reason: Protocol Stop: 04/08/17 11:16 Last Admin: 10/07/16 12:29 Dose: 12 unit/kg/hr, 14.328 mls/hr Lisinopril (Zestril) 20 mg PO DAILY [facility] Stop: 04/08/17 09:46 Last Admin: 10/07/16 11:50 Dose: 20 mg Naloxone HCl (Narcan) 0.4 mg IVP Q2MIN PRN PRN Reason: Opioid Reversal Stop: 04/08/17 09:38 Omeprazole (Prilosec) 20 mg PO DAILY@0630 GOVIND PRN Reason: Protocol Stop: 04/09/17 06:31 Paroxetine HCl (Paxil) 10 mg PO QAM GOVIND Stop: 04/08/17 10:01 Last Admin: 10/07/16 11:49 Dose: 10 mg Phenytoin (Dilantin Er) 300 mg PO HS [facility] Stop: 04/08/17 21:01 Laboratory Tests 10/07/16 10/07/16 10/07/16 03:34 03:34 03:34 WBC 12.0 H Hgb 11.6 Creatinine 0.67 Troponin I 0.05 H* B-Natriuretic Peptide 10/07/16 10/07/16 03:34 10:04 WBC Hgb Creatinine Troponin I 0.38 H* B-Natriuretic Peptide 303 H - Imaging and Cardiology Chest Xray: report reviewed Echo: pending, report reviewed - EKG Interpretation EKG results cardiology: personally reviewed (ECG with SR, HR 81.), other ( Telemetry reviewed with average HR 78, sinus rhythm. PVCs and PACs noted.) Consult Discharge Plan - Plan Referrals: Salas Matta MD [Primary Care Provider] -
[2016-10-07] MEDS ORDERED: *HR* LORazepam 2 MG/ML VIAL IVP ONE ×2 (16:34→22:47)
--- NOTE | 2016-10-07 17:29 | Electrocardiograph Report ---
[place] [id number] Test Date: 2016-10-07 Pat Name: Estelita Donovan Department: 102 Room: [id number] Gender: F Overcoiler: : 1935 Requested By: Luc Acuna Order Number: [id number] Reading MD: Devante Bartlett DO Measurements Intervals [place] Rate: 101 P: 50 TN: 145 QRS: -6 QRSD: 89 T: 69 QT: 338 QTc: 396 Interpretive Statements SINUS TACHYCARDIA WITH OCCASIONAL VENTRICULAR PREMATURE COMPLEXES POSSIBLE LEFT ATRIAL ENLARGEMENT [-0.1mV P WAVE IN V1/V2] SEPTAL MYOCARDIAL INFARCTION [40+ ms Q WAVE IN V1/V2], PROBABLY OLD Electronically Signed On 10-07-2016 17:27:45 EDT by Devante Bartlett DO
[2016-10-07] MEDS ORDERED: *HR* Heparin 5,000 UNIT/ML VIAL SQ SCH (18:00)
[2016-10-07] MEDS: *HR* Heparin 5,000 UNIT/ML VIAL IVP PRN (18:59)
[2016-10-07] MEDS: Furosemide 20 MG/2 ML VIAL IVP SCH (22:11)
[2016-10-08] MEDS: *HR* Heparin 5,000 UNIT/ML VIAL IVP PRN (01:57)
[2016-10-08 03:04] LABS: ABG Base Excess 8.1 mEq/L (-2.0 to 3.0); ABG HCO3 32.8 mEQ/L (21-27); ABG Oxygen Saturation 96 % (95-98); ABG PCO2 45 mmHg (35-45); ABG PH 7.47 pH Units (7.32-7.45); ABG PO2 80 mmHg (85-104); ABG TCO2 34.2 mEq/L (20-26); Blood Gas FiO2 60 %
[2016-10-08] MEDS ORDERED: *HR* Morphine 2 MG/ML SYRINGE ONE (03:17)
[2016-10-08] MEDS: *HR* Morphine 2 MG/ML SYRINGE IVP PRN (03:23)
[2016-10-08 03:46] LABS: Basophils # 0.1 K/mcL (0.0-0.2); Basophils % 0.6 %; Eosinophils # 0.1 K/mcL (0.0-0.6); Eosinophils % 0.8 %; Hematocrit 34.7 % (35.3-44.9); Hemoglobin 11.1 g/dL (11.5-15.4); Immature Granulocytes % 0.5 % (0-4); Lymphocytes # 1.1 K/mcL (0.6-4.6); Lymphocytes % 10.4 %; Mean Corpuscular Hemoglobin 32.8 pg (28.0-33.3); Mean Corpuscular Volume 102.7 fL (83.0-100.0); Mean Platelet Volume 10.7 fL (9.4-12.4); Monocytes # 1.2 K/mcL (0.0-1.3); Monocytes % 11.3 %; Neutrophils # 8.1 K/mcL (1.6-8.9); Platelet Count 201 K/mcL (140-400); Red Blood Count 3.38 M/mcL (3.82-4.97); Red Cell Distribution Width 14.3 % (11.5-14.5); Segmented Neutrophils % 76.4 %
--- NOTE | 2016-10-08 03:47 | Event Note ---
Date of Encounter: 10/08/16 Time of Encounter: 02:30 Called to see patient for respiratory distress per RN request. Patient remained tachypneic, pulling off her BIPAP, and had increased work of breathing. I ordered ABG and her values are similar/better than before. However, clinically, she has increased work of breathing. I ordered some morphine to ease her work of breathing and help with her CHF. I also ordered temporary soft resraints to her wrists so as to avoid interruption in her BiPap ventilation. I also called [facility] and ICU charge nurse to see patient. I asked Respiratory to monitor respiratory status, Bipap monitor, and to contact me should she begin to decline. In such an event, I will move her to ICU and proceed with intubation if necessary. With the Morphine, pt improved and her respiratory effort was less labored. O2 sats remain stable. We'll monitor her closely and transfer to ICU if necessary.
[2016-10-08 03:59] LABS: BUN/Creatinine Ratio 22 (6-26); Blood Urea Nitrogen 13 mg/dL (7-20); Calcium 8.7 mg/dL (8.6-10.8); Carbon Dioxide 29 mEq/L (19-29); Chloride 106 mEq/L (98-109); Chol/HDL Ratio 3.2 (0-4.9); Cholesterol 227 mg/dL (< 200); Glucose 125 mg/dL (70-99); HDL Cholesterol 71 mg/dL (40-59); LDL Cholesterol,Calculated 139 mg/dL (0-99); Magnesium 1.5 mg/dL (1.6-2.6); Osmolality,Calculated 300 (280-300); Potassium 3.4 mEq/L (3.5-4.5); Sodium 144 mEq/L (136-145); Triglycerides 85 mg/dL (< 150); eGFR For African Americans > 60 (> 60); eGFR For Non-African Americans > 60 (> 60)
--- NOTE | 2016-10-08 04:43 | Event Note ---
Date of Encounter: 10/08/16 Time of Encounter: 04:40 Called to see patient again per RN request. Pt remains tachypneic on BiPap; O2 sats remain stable, but she is working to breathe. I called ICU and asked to transfer to ICU for closer monitoring and care. She may need intubation for ongoing increased work of breathing and high oxygen requirement. Will follow closely in ICU and proceed as necessary.
[2016-10-08 05:37] LABS: ABG Base Excess 8.5 mEq/L (-2.0 to 3.0); ABG HCO3 33.4 mEQ/L (21-27); ABG Oxygen Saturation 98 % (95-98); ABG PCO2 47 mmHg (35-45); ABG PH 7.46 pH Units (7.32-7.45); ABG PO2 103 mmHg (85-104); ABG TCO2 34.8 mEq/L (20-26); Blood Gas FiO2 60 %
[2016-10-08] MEDS ORDERED: Furosemide 40 MG/4 ML VIAL IVP ONE (05:37)
[2016-10-08] MEDS ORDERED: Magnesium Sulfate 2 GM in D5% in Water 100 ML IVPB ONE (05:39)
[2016-10-08] MEDS: Aspirin 81 MG TAB.CHEW PO SCH (08:05)
[2016-10-08] MEDS: Lisinopril 20 MG TABLET PO SCH (08:05)
[2016-10-08] MEDS: Folic Acid 1 MG TABLET PO SCH (08:05)
[2016-10-08] MEDS: Anastrozole 1 MG TABLET PO SCH (08:05)
[2016-10-08] MEDS: Furosemide 20 MG/2 ML VIAL IVP SCH ×2 (08:51→20:24)
--- NOTE | 2016-10-08 11:02 | Pulmonology Consult Note ---
Date of Encounter: 10/08/16 Time of Encounter: 11:00 Assessment and Plan (1) Acute respiratory failure with hypoxia Current Visit: Yes Status: Acute Acute respiratory failure with hypoxia secondary to acute pulmonary edema presumably cardiogenic in etiology. Continue noninvasive ventilatory support as well as diuretic therapy. Further evaluation will be performed to include echocardiography. The patient's clinical respiratory status continued to progress and the favorable manner, she will be transitioned off noninvasive ventilatory support later today. The situation was reviewed at length with the primary service nursing and respiratory therapy staff. SNOMED Code(s): 81898958, [id number] History of Present Illness Consult date: 10/08/16 Chief complaint: Acute respiratory failure with hypoxia History of present illness: Elderly female presented with acute respiratory distress. Evaluation suggested acute pulmonary edema likely cardiogenic in etiology and given the magnitude of distress, the patient was placed on noninvasive ventilatory support and transferred to the intensive care unit. The patient is arousable, of note, she does admit to breathlessness with head nodding but denied chest discomfort. Past Med Surg Social Fam HX - Past Medical History Medical history: cancer (Breast cancer), dementia, hyperlipidemia, hypertension , seizures, syncope, other Psychiatric history: anxiety, depression - Past Surgical History Surgical History: no surgical history (Cannot be obtained due to patient's mental status), other - Social History Smoking Status: Never smoker Smokeless Tobacco Status: No Alcohol use: none Drug use: none - Family History Brother Living Status: Cause of : stroke Hx Family Cardiac Disorders: No Hx Family Respiratory Disorders: Yes Hx Family Neurologic Disorders: Yes Hx Family Medical Disorders: Yes Medications and Allergies Anastrozole [Arimidex] 1 mg PO DAILY 07/07/16 [History] Lisinopril [Zestril] 20 mg PO DAILY 07/07/16 [History] Paroxetine HCl [Paxil] 10 mg PO QAM 07/07/16 [History] Phenytoin ER [Dilantin ER] 300 mg PO HS 07/07/16 [History] Acetaminophen [Tylenol] 650 mg PO Q6HR PRN #30 tablet 07/11/16 [Rx] Ferrous Sulfate 325 mg PO DAILY@0800 tablet 07/11/16 [Rx] Folic Acid 5 mg PO DAILY tablet 07/11/16 [Rx] Cephalexin [Keflex] 500 mg PO QID 10/07/16 [History] Cyanocobalamin (Vitamin B-12) [Vitamin B12] 1,000 mcg PO DAILY 10/07/16 [History ] Allergies No Known Allergies Allergy (Verified 02/29/16 11:10) ROS unobtainable: other (Unable to obtain a concise and comprehensive review of systems since the patient requires use of full face mask device for provision of noninvasive ventilatory support.) All Systems: A 10-system review of systems was performed and is negative for pertinent findings except as documented above in the HPI. Physical Examination Vital Signs: Vital Signs, Last 4 Hours Temp Pulse Resp BP Pulse Ox 10/08/16 10:00 78 31 148/80 100 10/08/16 09:05 29 99 10/08/16 09:00 75 24 119/63 100 10/08/16 08:00 79 28 123/72 100 10/08/16 07:51 100 10/08/16 07:34 96.6 F L General appearance: no acute distress, other (Elderly frail female) Eyes: nonicteric ENT: other (Unable to assess oropharynx nasal pharynx given presence of full face mask device.) Auscultation: bilateral: diminished breath sounds, rales Cardiovascular: regular rate and rhythm, murmur noted Gastrointestinal: normoactive bowel sounds, non-tender, non-distended Extremities: no cyanosis, no edema Musculoskeletal: no deformities normal mental status, non-focal exam Results - Laboratory Findings CBC and BMP: 10/08/16 03:38 10/08/16 03:38 ABG ABG pH 7.46 pH Units (7.32-7.45) H 10/08/16 05:26 ABG pCO2 47 mmHg (35-45) H 10/08/16 05:26 ABG pO2 103 mmHg (85-104) 10/08/16 05:26 ABG O2 Saturation 98 % (95-98) 10/08/16 05:26 PT/INR, D-dimer PT 12.4 Seconds (9.4-12.1) H 10/07/16 03:34 Abnormal lab findings: Abnormal lab results RBC 3.38 M/mcL (3.82-4.97) L 10/08/16 03:38 Hgb 11.1 g/dL (11.5-15.4) L 10/08/16 03:38 Hct 34.7 % (35.3-44.9) L 10/08/16 03:38 MCV 102.7 fL (83.0-100.0) H 10/08/16 03:38 PT 12.4 Seconds (9.4-12.1) H 10/07/16 03:34 APTT 54.9 Seconds (26.0-36.0) H 10/08/16 00:04 ABG pH 7.46 pH Units (7.32-7.45) H 10/08/16 05:26 ABG pCO2 47 mmHg (35-45) H 10/08/16 05:26 ABG HCO3 33.4 mEQ/L (21-27) H 10/08/16 05:26 ABG Total CO2 34.8 mEq/L (20-26) H 10/08/16 05:26 ABG Base Excess 8.5 mEq/L (-2.0 to 3.0) H 10/08/16 05:26 Potassium 3.4 mEq/L (3.5-4.5) L 10/08/16 03:38 Glucose 125 mg/dL (70-99) H 10/08/16 03:38 Magnesium 1.5 mg/dL (1.6-2.6) L 10/08/16 03:38 Alkaline Phosphatase 256 Units/L (38-126) H 10/07/16 03:34 Troponin I 0.23 ng/mL (0-0.03) H* 10/08/16 00:04 B-Natriuretic Peptide 303 pg/mL (0-100) H 10/07/16 03:34 Albumin 2.8 g/dL (3.5-5.0) L 10/07/16 03:34 Globulin 4.7 g/dL (2.4-3.5) H 10/07/16 03:34 Albumin/Globulin Ratio 0.6 (1.1-2.2) L 10/07/16 03:34 Cholesterol 227 mg/dL (< 200) H 10/08/16 03:38 LDL Cholesterol, Calc 139 mg/dL (0-99) H 10/08/16 03:38 HDL Cholesterol 71 mg/dL (40-59) H 10/08/16 03:38 Urine Clarity Cloudy (Clear) A 10/07/16 05:43 Urine Protein 100 mg/dL (Neg-Trace) H 10/07/16 05:43 Urine Blood Small (Negative) H 10/07/16 05:43 Ur Leukocyte Esterase Moderate (Negative) H 10/07/16 05:43 Urine Microscopic RBC 5-15 per hpf (0-3) H 10/07/16 05:43 Urine Microscopic WBC TNTC per hpf (0-3) H 10/07/16 05:43 Ur Squamous Epith Cells Many per lpf (None-Few) H 10/07/16 05:43 Hyaline Casts Moderate per lpf (None-Few) H 10/07/16 05:43 Ur Culture Indicated? YES (NO) A 10/07/16 05:43 - Diagnostic Findings Chest x-ray: image reviewed - Clinical Findings Intake & Output: Intake & Output 10/07/16 10/08/16 10/08/16 23:59 07:59 15:59 Intake Total 109 / 109 100 / 100 Output Total 1500 / 1500 1400 / 1400 Balance -1391 / -1391 -1400 / -1400 100 / 100 Weight 55.4 kg Consult Discharge Plan - Plan Referrals: Salas Matta MD [Primary Care Provider] -
--- NOTE | 2016-10-08 11:21 | Cardiology Progress Note ---
Date of Encounter: 10/08/16 Time of Encounter: 11:19 Assessment and Plan (1) CHF (congestive heart failure) Current Visit: Yes Status: Acute Moderate bilateral pleural effusions seen on CT scan. Currently being treated for CHF with IV diuresis and BiPAP. Chest x-ray showed improving pulmonary edema versus superimposed pneumonia. TTE is pending. Echo 2012 LVEF 60%, no diastolic dysfunction, no wall motion abnormalities. Continue strict I&O and daily weights. Replace K+. Currently net negative 1391. We will continue to follow. Qualifiers: Congestive heart failure type: unspecified congestive heart failure type Congestive heart failure chronicity: acute Qualified Code(s): I50.9 - Heart failure, unspecified (2) Elevated troponin Current Visit: Yes Status: Acute Per cardiology: Troponins 0.05, 0.38, 0.29, 0.23. Demand ischemia in the setting of hypoxia. She is currently not a good candidate for further invasive cardiac workup secondary to baseline severe dementia. Continue heparin drip for 48 hours. ECG with no ischemic changes. Echo pending. Echo 2012 LVEF 60%, no diastolic dysfunction, no wall motion abnormalities. Further recommendations pending echo. Continue aspirin, statin, and beta anahi. Discussion w patient/family: The assessment and plan as outlined above was discussed with the patient and/or family members who expressed understanding and agreement. All questions were answered. Thank you for involving us in the care of your patient. Please call with any questions. Subjective Principal diagnosis: CHF Interval history: Ms Donovan developed rspiratory distress last night and required transfer to ICU for closer monitoring. ABG and CXR actually showed improvement. Patient given ativan due to restlessness and pulling off bipap. She is now drowsy and resting comfortably. Objective Vital Signs, Last 4 Hours Temp Pulse Resp BP Pulse Ox 10/08/16 10:00 78 31 148/80 100 10/08/16 09:05 29 99 10/08/16 09:00 75 24 119/63 100 10/08/16 08:00 79 28 123/72 100 10/08/16 07:51 100 10/08/16 07:34 96.6 F L General: No Apparent Distress, Other (Drowsy on BiPAP) HEENT: Atraumatic, Normocephaly, Mucus Membranes Moist Neck: No JVD, Normal carotid pulses Cardiac: Reg Rate and Rhythm, Normal S1 and S2, No Murmur Lungs: Other (Respirations easy on BiPAP. Mild rhonchi heard throughout.) Neuro: No focal deficits noted Abdomen: Soft, Non-Tender Skin: No rashes noted on visualized skin Musculoskeletal: No Chest Wall Tenderness Extremities: No Clubbing, No Cyanosis, Normal Pulses, Other (1+ edema noted in bilateral ankles) Results 10/08/16 03:38 10/08/16 03:38 Lab Results 10/07/16 10/07/16 10/08/16 18:06 18:06 00:04 WBC Hgb Hct Plt Count APTT 54.0 H D Sodium Potassium Chloride Carbon Dioxide BUN Creatinine Glucose Calcium Magnesium Troponin I 0.29 H* 0.23 H* 10/08/16 10/08/16 10/08/16 00:04 03:38 03:38 WBC 10.6 Hgb 11.1 L Hct 34.7 L Plt Count 201 APTT 54.9 H Sodium 144 Potassium 3.4 L Chloride 106 Carbon Dioxide 29 BUN 13 Creatinine 0.60 Glucose 125 H Calcium 8.7 Magnesium 1.5 L Troponin I - Imaging and Cardiology Echo: pending Consult Discharge Plan - Plan Referrals: Salas Matta MD [Primary Care Provider] -
[2016-10-08] MEDS: Heparin 25,000 UNIT/500 ML D5W 25,000 UNIT/500 ML MLS IVC SCH (19:53)
[2016-10-09] MEDS: Anastrozole 1 MG TABLET PO SCH (08:00)
[2016-10-09] MEDS: Furosemide 20 MG/2 ML VIAL IVP SCH ×2 (08:00→20:06)
[2016-10-09] MEDS: Folic Acid 1 MG TABLET PO SCH (08:00)
[2016-10-09] MEDS: Lisinopril 20 MG TABLET PO SCH (08:00)
[2016-10-09] MEDS: Aspirin 81 MG TAB.CHEW PO SCH (08:00)
--- NOTE | 2016-10-09 09:32 | Pulmonology Progress Note ---
Date of Encounter: 10/09/16 Time of Encounter: 09:30 Assessment and Plan (1) Acute respiratory failure with hypoxia Current Visit: Yes Status: Acute Acute respiratory failure with hypoxia is due to acute pulmonary edema. Based upon the evaluation performed today, the patient does have mildly depressed systolic ejection fraction as well as diastolic dysfunction and secondary pulmonary hypertension per echocardiographic evaluation. The patient is successfully transitioned off noninvasive ventilatory support to nasal cannula supplementation. Continue medical management. Cardiology service is assisting with care. I would anticipate that the patient is a candidate for medical therapies only for treatment of cardiac dysfunction given her age and poor performance status related to Alzheimer's disease. Patient can likely transition out of the intensive care unit within the next 24 hours. Management was reviewed during multidisciplinary critical care rounds. SNOMED Code(s): 38939989, [id number] Subjective Principal diagnosis: Acute respiratory failure with hypoxia Interval history: Overnight, following diuresis, the patient has transitioned off noninvasive ventilatory support to a moderate level nasal cannula supplementation. At baseline, the patient is confused (Alzheimer's disease, currently requires upper extremity soft restraints given confusion and mild agitation) and with prompting denied any significant breathlessness, orthopnea cough or chest congestion. However obviously, given the constraints of this patient's mental status review of systems is not obtainable. Acute overnight events medical issues reported per discussion with nursing staff. Objective PUL Vital signs: Last Vital Signs Temp 98.7 F 10/09/16 07:31 Pulse 97 10/09/16 08:00 Resp 20 10/09/16 08:00 BP 164/84 10/09/16 08:00 Pulse Ox 96 10/09/16 08:00 General appearance: no acute distress Eyes: nonicteric ENT: oropharynx moist Neck: JVD, other Auscultation: bilateral: diminished breath sounds, rales Cardiovascular: regular rate and rhythm, other (Gallop, loud P2) Extremities: edema (Minimal lower extremity edema) non-focal exam, other (The patient is confused and disoriented does not interact with caregivers.) Results - Laboratory Findings CBC and BMP: 10/08/16 03:38 10/08/16 03:38 ABG ABG pH 7.46 pH Units (7.32-7.45) H 10/08/16 05:26 ABG pCO2 47 mmHg (35-45) H 10/08/16 05:26 ABG pO2 103 mmHg (85-104) 10/08/16 05:26 ABG O2 Saturation 98 % (95-98) 10/08/16 05:26 PT/INR, D-dimer PT 12.4 Seconds (9.4-12.1) H 10/07/16 03:34 Abnormal lab findings: Abnormal lab results RBC 3.38 M/mcL (3.82-4.97) L 10/08/16 03:38 Hgb 11.1 g/dL (11.5-15.4) L 10/08/16 03:38 Hct 34.7 % (35.3-44.9) L 10/08/16 03:38 MCV 102.7 fL (83.0-100.0) H 10/08/16 03:38 PT 12.4 Seconds (9.4-12.1) H 10/07/16 03:34 APTT 70.3 Seconds (26.0-36.0) H 10/09/16 02:57 ABG pH 7.46 pH Units (7.32-7.45) H 10/08/16 05:26 ABG pCO2 47 mmHg (35-45) H 10/08/16 05:26 ABG HCO3 33.4 mEQ/L (21-27) H 10/08/16 05:26 ABG Total CO2 34.8 mEq/L (20-26) H 10/08/16 05:26 ABG Base Excess 8.5 mEq/L (-2.0 to 3.0) H 10/08/16 05:26 Potassium 3.4 mEq/L (3.5-4.5) L 10/08/16 03:38 Glucose 125 mg/dL (70-99) H 10/08/16 03:38 POC Glucose 127 (58-89) H 10/08/16 11:43 Magnesium 1.5 mg/dL (1.6-2.6) L 10/08/16 03:38 Alkaline Phosphatase 256 Units/L (38-126) H 10/07/16 03:34 Troponin I 0.23 ng/mL (0-0.03) H* 10/08/16 00:04 B-Natriuretic Peptide 303 pg/mL (0-100) H 10/07/16 03:34 Albumin 2.8 g/dL (3.5-5.0) L 10/07/16 03:34 Globulin 4.7 g/dL (2.4-3.5) H 10/07/16 03:34 Albumin/Globulin Ratio 0.6 (1.1-2.2) L 10/07/16 03:34 Cholesterol 227 mg/dL (< 200) H 10/08/16 03:38 LDL Cholesterol, Calc 139 mg/dL (0-99) H 10/08/16 03:38 HDL Cholesterol 71 mg/dL (40-59) H 10/08/16 03:38 Urine Clarity Cloudy (Clear) A 10/07/16 05:43 Urine Protein 100 mg/dL (Neg-Trace) H 10/07/16 05:43 Urine Blood Small (Negative) H 10/07/16 05:43 Ur Leukocyte Esterase Moderate (Negative) H 10/07/16 05:43 Urine Microscopic RBC 5-15 per hpf (0-3) H 10/07/16 05:43 Urine Microscopic WBC TNTC per hpf (0-3) H 10/07/16 05:43 Ur Squamous Epith Cells Many per lpf (None-Few) H 10/07/16 05:43 Hyaline Casts Moderate per lpf (None-Few) H 10/07/16 05:43 Ur Culture Indicated? YES (NO) A 10/07/16 05:43 - Clinical Findings Intake & Output: Intake & Output 10/08/16 10/09/16 10/09/16 23:59 07:59 15:59 Intake Total 767.1 / 767.1 143 / 143 Output Total 1825 / 1825 150 / 150 Balance -1057.9 / -1057.9 -7 / -7 Weight 54.4 kg Consult Discharge Plan - Plan Referrals: Salas Matta MD [Primary Care Provider] -
--- NOTE | 2016-10-09 10:51 | Cardiology Progress Note ---
Date of Encounter: 10/09/16 Time of Encounter: 10:49 Assessment and Plan (1) CHF (congestive heart failure) Current Visit: Yes Status: Acute TTE shows EF 40-45%. Mild global sytolic dysfunction. There is a moderate pericardial effusion with no evidence of tamponade. Moderate bilateral pleural effusions seen on CT scan. Recommend repeat TTE to re-evaluate pericardial effusion prior to d/c. Currently being treated for CHF with IV diuresis. Weaned off bipap last night. Diuresing well on 20 mg IV lasix BID. Continue for at least 24 more hours. Continue strict I&O and daily weights. Replace K+. Currently net negative 2251 ml. Change metoprol tartrate to metoprolol succinate and continue ACEi. Qualifiers: Congestive heart failure type: unspecified congestive heart failure type Congestive heart failure chronicity: acute Qualified Code(s): I50.9 - Heart failure, unspecified (2) Elevated troponin Current Visit: Yes Status: Acute Per cardiology: Troponins 0.05, 0.38, 0.29, 0.23. Demand ischemia in the setting of hypoxia. EF Mildly reduced from previous. EF 40-45%, previously 60%. She is not a good candidate for further invasive cardiac workup secondary to baseline severe dementia. ECG with no ischemic changes. She denies chest pain. Ok to discontinue heparin gtt. Will start DVT prophylaxis. Asa, statin ,and bb recommended. (3) HTN (hypertension) Current Visit: Yes Status: Chronic B/p continues to be 160-170 systolic. Add norvasc. Continue lisinopril. Qualifiers: Hypertension type: essential hypertension Qualified Code(s): I10 - Essential (primary) hypertension Discussion w patient/family: The assessment and plan as outlined above was discussed with the patient and/or family members who expressed understanding and agreement. All questions were answered. Thank you for involving us in the care of your patient. Please call with any questions. Subjective Principal diagnosis: Acute respiratory failure with hypoxia Interval history: Ms Donovan is off bipap. Denies chest pain. Objective Vital Signs, Last 4 Hours Temp Pulse Resp BP Pulse Ox 10/09/16 10:00 89 22 126/56 97 10/09/16 09:00 85 20 136/62 100 10/09/16 08:00 97 20 164/84 96 10/09/16 07:31 98.7 F 10/09/16 07:00 96 20 164/84 96 General: Conversant, No Apparent Distress, Other (confusion at baseline) HEENT: Atraumatic, Normocephaly, Mucus Membranes Moist Neck: No JVD, Normal carotid pulses Cardiac: Reg Rate and Rhythm, Normal S1 and S2, No Murmur Lungs: Normal Breath Sounds, Other (faint rales noted in bases. ) Neuro: Alert and responsive, No focal deficits noted Abdomen: Soft, Non-Tender Skin: No rashes noted on visualized skin Musculoskeletal: No Chest Wall Tenderness Extremities: Other (trace to 1+ edema in ankles. ) Results 10/08/16 03:38 10/08/16 03:38 Lab Results 10/08/16 10/08/16 10/09/16 13:27 20:20 02:57 APTT 38.6 H 102.2 H D 70.3 H - Imaging and Cardiology Echo: report reviewed Consult Discharge Plan - Plan Referrals: Salas Matta MD [Primary Care Provider] -
[2016-10-09 10:55] LABS: Basophils # 0.1 K/mcL (0.0-0.2); Basophils % 0.5 %; Eosinophils # 0.1 K/mcL (0.0-0.6); Eosinophils % 0.6 %; Hematocrit 32.5 % (35.3-44.9); Hemoglobin 10.3 g/dL (11.5-15.4); Immature Granulocytes % 0.6 % (0-4); Lymphocytes # 0.7 K/mcL (0.6-4.6); Lymphocytes % 7.5 %; Mean Corpuscular HGB Conc 31.7 g/dL (31.6-35.5); Mean Corpuscular Hemoglobin 32.7 pg (28.0-33.3); Mean Corpuscular Volume 103.2 fL (83.0-100.0); Mean Platelet Volume 11.2 fL (9.4-12.4); Monocytes # 1.1 K/mcL (0.0-1.3); Neutrophils # 7.7 K/mcL (1.6-8.9); Platelet Count 189 K/mcL (140-400); Red Blood Count 3.15 M/mcL (3.82-4.97); Red Cell Distribution Width 14.6 % (11.5-14.5); Segmented Neutrophils % 79.8 %
[2016-10-09] MEDS ORDERED: amLODIPine 5 MG TABLET PO SCH (11:00)
[2016-10-09] MEDS ORDERED: Metoprolol XL (24 HR) Succ 25 MG TAB.ER.24H PO ONE (11:00)
[2016-10-09 11:06] LABS: BUN/Creatinine Ratio 20 (6-26); Blood Urea Nitrogen 15 mg/dL (7-20); Calcium 8.4 mg/dL (8.6-10.8); Carbon Dioxide 32 mEq/L (19-29); Chloride 104 mEq/L (98-109); Glucose 155 mg/dL (70-99); Osmolality,Calculated 304 (280-300); Potassium 3.5 mEq/L (3.5-4.5); Sodium 145 mEq/L (136-145); eGFR For African Americans > 60 (> 60); eGFR For Non-African Americans > 60 (> 60)
[2016-10-09] MEDS: *HR* Heparin 5,000 UNIT/ML VIAL SQ SCH (18:15)
[2016-10-10] MEDS: *HR* Morphine 2 MG/ML SYRINGE IVP PRN ×2 (00:42→03:17)
[2016-10-10] MEDS: *HR* Heparin 5,000 UNIT/ML VIAL SQ SCH ×2 (05:08→18:10)
[2016-10-10 06:57] LABS: Basophils % 0.5 %; Eosinophils # 0.1 K/mcL (0.0-0.6); Eosinophils % 1.2 %; Hematocrit 30.3 % (35.3-44.9); Hemoglobin 9.7 g/dL (11.5-15.4); Immature Granulocytes % 0.2 % (0-4); Lymphocytes % 12.5 %; Mean Corpuscular Hemoglobin 32.7 pg (28.0-33.3); Monocytes # 1.1 K/mcL (0.0-1.3); Monocytes % 13.4 %; Neutrophils # 5.8 K/mcL (1.6-8.9); Platelet Count 151 K/mcL (140-400); Red Blood Count 2.97 M/mcL (3.82-4.97); Red Cell Distribution Width 14.2 % (11.5-14.5); Segmented Neutrophils % 72.2 %
--- NOTE | 2016-10-10 07:31 | Pulmonology Progress Note ---
Addendum entered and electronically signed by Richar Martinez, 10/10/16 09:45: Patient was discussed with the admitting hospitalist who accepted the patient for transfer. Original Note: <Richar Martinez - Last Filed: 10/10/16 08:26> Date of Encounter: 10/10/16 Time of Encounter: 07:15 Assessment and Plan (1) Acute respiratory failure with hypoxia Current Visit: Yes Status: Acute Improving. Likely related to underlying systolic heart failure with acute pulmonary edema. Patient tolerates nasal cannula well. Given the patient's age and underlying medical comorbidities is likely a poor candidate for any further intervention. Plan to transfer to ICU today. (2) CHF (congestive heart failure) Current Visit: Yes Status: Acute Acute systolic and diastolic heart failure with an EF of 45-50% which is apparently new for her. Cardiology is following and feel patient is a poor candidate for possible intervention. Continue with medical management including beta anahi, SEBASTIAN inhibitor, and diuretics as tolerated. Qualifiers: Congestive heart failure type: combined Congestive heart failure chronicity : acute Qualified Code(s): I50.41 - Acute combined systolic (congestive) and diastolic (congestive) heart failure (3) Dementia arising in the senium and presenium Current Visit: Yes Status: Chronic Subjective Principal diagnosis: Acute respiratory failure with hypoxia Interval history: Patient seen and examined. Patient is demented at baseline and is unable to give a good history. Patient wore BiPAP overnight and tolerated this well. Given the patient's baseline mental status she is unable to further elaborate on her medical condition. Objective PUL Vital signs: Last Vital Signs Temp 98 F 10/10/16 00:01 Pulse 81 10/10/16 06:00 Resp 22 10/10/16 06:00 BP 144/71 10/10/16 06:00 Pulse Ox 97 10/10/16 06:00 General appearance: no acute distress ENT: oropharynx moist Auscultation: bilateral: diminished breath sounds Cardiovascular: regular rate and rhythm Gastrointestinal: hypoactive bowel sounds, soft, non-tender Extremities: no cyanosis, no edema other (Patient is alert and oriented to person only at baseline. Patient moves all 4 extremities spontaneously.) Results - Laboratory Findings CBC and BMP: 10/10/16 06:50 10/09/16 10:40 ABG ABG pH 7.46 pH Units (7.32-7.45) H 10/08/16 05:26 ABG pCO2 47 mmHg (35-45) H 10/08/16 05:26 ABG pO2 103 mmHg (85-104) 10/08/16 05:26 ABG O2 Saturation 98 % (95-98) 10/08/16 05:26 PT/INR, D-dimer PT 12.4 Seconds (9.4-12.1) H 10/07/16 03:34 Abnormal lab findings: Abnormal lab results RBC 2.97 M/mcL (3.82-4.97) L 10/10/16 06:50 Hgb 9.7 g/dL (11.5-15.4) L 10/10/16 06:50 Hct 30.3 % (35.3-44.9) L 10/10/16 06:50 MCV 102.0 fL (83.0-100.0) H 10/10/16 06:50 PT 12.4 Seconds (9.4-12.1) H 10/07/16 03:34 APTT 70.3 Seconds (26.0-36.0) H 10/09/16 02:57 ABG pH 7.46 pH Units (7.32-7.45) H 10/08/16 05:26 ABG pCO2 47 mmHg (35-45) H 10/08/16 05:26 ABG HCO3 33.4 mEQ/L (21-27) H 10/08/16 05:26 ABG Total CO2 34.8 mEq/L (20-26) H 10/08/16 05:26 ABG Base Excess 8.5 mEq/L (-2.0 to 3.0) H 10/08/16 05:26 Carbon Dioxide 32 mEq/L (19-29) H 10/09/16 10:40 Glucose 155 mg/dL (70-99) H 10/09/16 10:40 POC Glucose 127 (58-89) H 10/08/16 11:43 Calculated Osmolality 304 (280-300) H 10/09/16 10:40 Calcium 8.4 mg/dL (8.6-10.8) L 10/09/16 10:40 Magnesium 1.5 mg/dL (1.6-2.6) L 10/08/16 03:38 Alkaline Phosphatase 256 Units/L (38-126) H 10/07/16 03:34 Troponin I 0.23 ng/mL (0-0.03) H* 10/08/16 00:04 B-Natriuretic Peptide 303 pg/mL (0-100) H 10/07/16 03:34 Albumin 2.8 g/dL (3.5-5.0) L 10/07/16 03:34 Globulin 4.7 g/dL (2.4-3.5) H 10/07/16 03:34 Albumin/Globulin Ratio 0.6 (1.1-2.2) L 10/07/16 03:34 Cholesterol 227 mg/dL (< 200) H 10/08/16 03:38 LDL Cholesterol, Calc 139 mg/dL (0-99) H 10/08/16 03:38 HDL Cholesterol 71 mg/dL (40-59) H 10/08/16 03:38 Urine Clarity Cloudy (Clear) A 10/07/16 05:43 Urine Protein 100 mg/dL (Neg-Trace) H 10/07/16 05:43 Urine Blood Small (Negative) H 10/07/16 05:43 Ur Leukocyte Esterase Moderate (Negative) H 10/07/16 05:43 Urine Microscopic RBC 5-15 per hpf (0-3) H 10/07/16 05:43 Urine Microscopic WBC TNTC per hpf (0-3) H 10/07/16 05:43 Ur Squamous Epith Cells Many per lpf (None-Few) H 10/07/16 05:43 Hyaline Casts Moderate per lpf (None-Few) H 10/07/16 05:43 Ur Culture Indicated? YES (NO) A 10/07/16 05:43 - Clinical Findings Intake & Output: Intake & Output 10/09/16 10/09/16 10/10/16 15:59 23:59 07:59 Intake Total 63.9 / 63.9 150 / 150 25 / 25 Output Total 700 / 700 150 / 150 950 / 950 Balance -636.1 / -636.1 0 / 0 -925 / -925 Weight 53.342 kg Consult Discharge Plan - Plan Referrals: Salas Matta MD [Primary Care Provider] - <Finn Lorenz - Last Filed: 10/10/16 12:24> Date of Encounter: 10/10/16 Assessment and Plan (1) Acute respiratory failure with hypoxia Current Visit: Yes Status: Acute SNOMED Code(s): 48062746, 847023022 Objective PUL Vital signs: Last Vital Signs Temp 98.2 F 10/10/16 10:19 Pulse 84 10/10/16 10:19 Resp 16 10/10/16 10:19 BP 141/68 10/10/16 10:19 Pulse Ox 93 10/10/16 10:19 Auscultation: bilateral: diminished breath sounds, rales Percussion: bilateral: dull Cardiovascular: other (Gallop, loud P, systolic murmur) Results - Laboratory Findings CBC and BMP: 10/10/16 06:50 10/10/16 08:40 ABG ABG pH 7.46 pH Units (7.32-7.45) H 10/08/16 05:26 ABG pCO2 47 mmHg (35-45) H 10/08/16 05:26 ABG pO2 103 mmHg (85-104) 10/08/16 05:26 ABG O2 Saturation 98 % (95-98) 10/08/16 05:26 PT/INR, D-dimer PT 12.4 Seconds (9.4-12.1) H 10/07/16 03:34 Abnormal lab findings: Abnormal lab results RBC 2.97 M/mcL (3.82-4.97) L 10/10/16 06:50 Hgb 9.7 g/dL (11.5-15.4) L 10/10/16 06:50 Hct 30.3 % (35.3-44.9) L 10/10/16 06:50 MCV 102.0 fL (83.0-100.0) H 10/10/16 06:50 PT 12.4 Seconds (9.4-12.1) H 10/07/16 03:34 APTT 70.3 Seconds (26.0-36.0) H 10/09/16 02:57 ABG pH 7.46 pH Units (7.32-7.45) H 10/08/16 05:26 ABG pCO2 47 mmHg (35-45) H 10/08/16 05:26 ABG HCO3 33.4 mEQ/L (21-27) H 10/08/16 05:26 ABG Total CO2 34.8 mEq/L (20-26) H 10/08/16 05:26 ABG Base Excess 8.5 mEq/L (-2.0 to 3.0) H 10/08/16 05:26 Sodium 146 mEq/L (136-145) H 10/10/16 08:40 Potassium 2.9 mEq/L (3.5-4.5) L 10/10/16 08:40 Carbon Dioxide 36 mEq/L (19-29) H 10/10/16 08:40 BUN/Creatinine Ratio 31 (6-26) H 10/10/16 08:40 POC Glucose 127 (58-89) H 10/08/16 11:43 Calculated Osmolality 304 (280-300) H 10/10/16 08:40 Calcium 8.3 mg/dL (8.6-10.8) L 10/10/16 08:40 Magnesium 1.5 mg/dL (1.6-2.6) L 10/08/16 03:38 Alkaline Phosphatase 256 Units/L (38-126) H 10/07/16 03:34 Troponin I 0.23 ng/mL (0-0.03) H* 10/08/16 00:04 B-Natriuretic Peptide 303 pg/mL (0-100) H 10/07/16 03:34 Albumin 2.8 g/dL (3.5-5.0) L 10/07/16 03:34 Globulin 4.7 g/dL (2.4-3.5) H 10/07/16 03:34 Albumin/Globulin Ratio 0.6 (1.1-2.2) L 10/07/16 03:34 Cholesterol 227 mg/dL (< 200) H 10/08/16 03:38 LDL Cholesterol, Calc 139 mg/dL (0-99) H 10/08/16 03:38 HDL Cholesterol 71 mg/dL (40-59) H 10/08/16 03:38 Urine Clarity Cloudy (Clear) A 10/07/16 05:43 Urine Protein 100 mg/dL (Neg-Trace) H 10/07/16 05:43 Urine Blood Small (Negative) H 10/07/16 05:43 Ur Leukocyte Esterase Moderate (Negative) H 10/07/16 05:43 Urine Microscopic RBC 5-15 per hpf (0-3) H 10/07/16 05:43 Urine Microscopic WBC TNTC per hpf (0-3) H 10/07/16 05:43 Ur Squamous Epith Cells Many per lpf (None-Few) H 10/07/16 05:43 Hyaline Casts Moderate per lpf (None-Few) H 10/07/16 05:43 Ur Culture Indicated? YES (NO) A 10/07/16 05:43 - Clinical Findings Intake & Output: Intake & Output 10/09/16 10/10/16 10/10/16 23:59 07:59 15:59 Intake Total 150 / 150 25 / 25 Output Total 150 / 150 950 / 950 Balance 0 / 0 -925 / -925 Weight 53.342 kg 51.8 kg
[2016-10-10] MEDS ORDERED: *HR* Morphine 2 MG/ML SYRINGE IVP PRN ×2 (07:52→08:53)
--- NOTE | 2016-10-10 08:30 | Cardiology Progress Note ---
Date of Encounter: 10/10/16 Time of Encounter: 08:28 Assessment and Plan (1) CHF (congestive heart failure) Current Visit: Yes Status: Acute TTE shows EF 40-45%. Mild global systolic dysfunction. There is a moderate pericardial effusion with no evidence of tamponade. Moderate bilateral pleural effusions seen on CT scan. Currently being treated for CHF with IV diuresis. Weaned off bipap last night. Diuresing well on 20 mg IV lasix BID. Edema improved. Currently net negative 3876 ml, negative 1746ml for 24 hours.. Continue bb and ACEi. Maximize as tolerated. Increase toprol XL to 50. Recommend repeat TTE to re-evaluate pericardial effusion prior to d/c. Recommend continuing lasix if SCr is normal today and transition to oral tomorrow. Mild JVD noted. Continue strict I&O and daily weights. We will continue to monitor peripherally for TTE to re-evaluate pericardial effusion. (Complete prior to discharge) Call with questions. Out-pt F/u will be scheduled. Qualifiers: Congestive heart failure type: combined Congestive heart failure chronicity : acute Qualified Code(s): I50.41 - Acute combined systolic (congestive) and diastolic (congestive) heart failure (2) Elevated troponin Current Visit: Yes Status: Acute Per cardiology: Troponins 0.05, 0.38, 0.29, 0.23. Demand ischemia in the setting of hypoxia. EF Mildly reduced from previous. EF 40-45%, previously 60%. She is not a good candidate for further invasive cardiac workup secondary to baseline severe dementia. ECG with no ischemic changes. She denies chest pain. Received heparin gtt for 48 hrs. Asa, statin ,and bb recommended. (3) HTN (hypertension) Current Visit: Yes Status: Chronic Continue lisinopril and norvasc. B/p improved. Qualifiers: Hypertension type: essential hypertension Qualified Code(s): I10 - Essential (primary) hypertension Discussion w patient/family: The assessment and plan as outlined above was discussed with the patient and/or family members who expressed understanding and agreement. All questions were answered. Thank you for involving us in the care of your patient. Please call with any questions. Subjective Principal diagnosis: Acute respiratory failure with hypoxia Interval history: Patient resting comfortably. On bipap overnight. Respirations easy. Confused at baseline. Objective Vital Signs, Last 4 Hours Temp Pulse Resp BP Pulse Ox 10/10/16 07:17 99.5 F 10/10/16 07:00 85 10/10/16 06:00 81 22 144/71 97 10/10/16 05:13 23 144/71 97 10/10/16 05:03 81 22 150/74 98 General: Other (Confused on bipap. Shakes head yes and no.) HEENT: Atraumatic, Normocephaly, Mucus Membranes Moist, Other (small open area on bridge of nose. ) Neck: Normal carotid pulses, Other (Mild JVD) Cardiac: Reg Rate and Rhythm, Normal S1 and S2, No Murmur Lungs: Normal Breath Sounds, No Wheeze, Rales, Rhonchi, Other (Diminished bases) Neuro: Alert and responsive, No focal deficits noted Abdomen: Soft, Non-Tender Skin: No rashes noted on visualized skin Musculoskeletal: No Chest Wall Tenderness Extremities: No Clubbing, No Cyanosis, No Edema, Normal Pulses Results 10/10/16 06:50 10/10/16 08:40 Lab Results 10/09/16 10/09/16 10/10/16 10:40 10:40 06:50 WBC 9.6 8.1 Hgb 10.3 L 9.7 L Hct 32.5 L 30.3 L Plt Count 189 151 Sodium 145 Potassium 3.5 Chloride 104 Carbon Dioxide 32 H BUN 15 Creatinine 0.74 Glucose 155 H Calcium 8.4 L Consult Discharge Plan - Plan Referrals: Salas Matta MD [Primary Care Provider] -
[2016-10-10] MEDS ORDERED: Ipratropium/Albuterol Neb 3 ML IH PRN (08:53)
[2016-10-10] MEDS ORDERED: Acetaminophen 325 MG TABLET PO PRN (08:53)
[2016-10-10] MEDS ORDERED: Naloxone 0.4 MG/ML INJ IVP PRN (08:53)
[2016-10-10] MEDS ORDERED: Metoprolol XL (24 HR) Succ 25 MG TAB.ER.24H PO SCH (09:00)
[2016-10-10] MEDS ORDERED: Metoprolol XL (24 HR) Succ 50 MG TAB.ER.24H PO SCH (09:00)
[2016-10-10] MEDS: Folic Acid 1 MG TABLET PO SCH (09:43)
[2016-10-10] MEDS: Furosemide 20 MG/2 ML VIAL IVP SCH ×2 (09:44→18:10)
[2016-10-10] MEDS: Aspirin 81 MG TAB.CHEW PO SCH (09:44)
[2016-10-10] MEDS: amLODIPine 5 MG TABLET PO SCH (09:44)
[2016-10-10] MEDS: Anastrozole 1 MG TABLET PO SCH (09:44)
[2016-10-10] MEDS: Lisinopril 20 MG TABLET PO SCH (09:45)
[2016-10-10 11:24] LABS: BUN/Creatinine Ratio 31 (6-26); Blood Urea Nitrogen 18 mg/dL (7-20); Calcium 8.3 mg/dL (8.6-10.8); Carbon Dioxide 36 mEq/L (19-29); Chloride 104 mEq/L (98-109); Glucose 99 mg/dL (70-99); Osmolality,Calculated 304 (280-300); Sodium 146 mEq/L (136-145); eGFR For African Americans > 60 (> 60); eGFR For Non-African Americans > 60 (> 60)
[2016-10-10 11:25] LABS: Potassium 2.9 mEq/L (3.5-4.5)
[2016-10-11] MEDS: *HR* Heparin 5,000 UNIT/ML VIAL SQ SCH ×2 (05:50→17:51)
[2016-10-11 06:11] LABS: Basophils % 0.7 %; Eosinophils # 0.2 K/mcL (0.0-0.6); Eosinophils % 3.1 %; Hematocrit 33.5 % (35.3-44.9); Hemoglobin 10.3 g/dL (11.5-15.4); Immature Granulocytes % 0.8 % (0-4); Lymphocytes # 0.9 K/mcL (0.6-4.6); Lymphocytes % 15.4 %; Mean Corpuscular HGB Conc 30.7 g/dL (31.6-35.5); Monocytes # 0.7 K/mcL (0.0-1.3); Neutrophils # 4.1 K/mcL (1.6-8.9); Platelet Count 163 K/mcL (140-400); Red Blood Count 3.22 M/mcL (3.82-4.97)
[2016-10-11 06:35] LABS: BUN/Creatinine Ratio 36 (6-26); Blood Urea Nitrogen 19 mg/dL (7-20); Calcium 8.4 mg/dL (8.6-10.8); Carbon Dioxide 36 mEq/L (19-29); Chloride 104 mEq/L (98-109); Glucose 89 mg/dL (70-99); Osmolality,Calculated 306 (280-300); Potassium 2.9 mEq/L (3.5-4.5); Sodium 147 mEq/L (136-145); eGFR For African Americans > 60 (> 60); eGFR For Non-African Americans > 60 (> 60)
[2016-10-11] MEDS: amLODIPine 5 MG TABLET PO SCH (08:51)
[2016-10-11] MEDS: Lisinopril 20 MG TABLET PO SCH (08:52)
[2016-10-11] MEDS: Aspirin 81 MG TAB.CHEW PO SCH (08:52)
[2016-10-11] MEDS: Furosemide 20 MG/2 ML VIAL IVP SCH ×2 (08:53→17:51)
[2016-10-11] MEDS: Anastrozole 1 MG TABLET PO SCH (08:53)
[2016-10-11] MEDS: Folic Acid 1 MG TABLET PO SCH ×2 (08:56→09:12)
[2016-10-11] MEDS: Potassium Chloride 40 MEQ, Lidocaine 1% 2 ML in D5% in Water 500 ML IVPB SCH ×2 (10:04→14:54)
--- NOTE | 2016-10-11 11:20 | Internal Med Progress Note ---
Date of Encounter: 10/11/16 Time of Encounter: 11:19 - Assessment and plan (1) Acute respiratory failure with hypoxia Current Visit: Yes Status: Acute Assessment and plan: Secondary to CHF decompensation Cardiology evaluation appreciated will transition to PO lasix in am continue BB and will increase dose as tolerated O2 supplementation as needed monitor I/Os fluid restriction diet monitor daily weight will f/u repeat 2D echo out of bed to chair and increase activity as tolerated PT evaluation (2) CHF (congestive heart failure) Current Visit: Yes Status: Acute Assessment and plan: as listed above Qualifiers: Congestive heart failure type: combined Congestive heart failure chronicity : acute Qualified Code(s): I50.41 - Acute combined systolic (congestive) and diastolic (congestive) heart failure (3) Dementia arising in the senium and presenium Current Visit: Yes Status: Chronic (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 Resting in bed and currently saturating well on nasal cannula. Transferred from the ICU overnight after being treated for acute respiratory failure secondary to CHF decompensation. Currently at baseline mental status. [facility]. Denies any discomfort at this time. - Constitutional Vitals: Temp Pulse Resp BP Pulse Ox 97.4 F L 74 18 142/82 96 10/11/16 08:03 10/11/16 08:03 10/11/16 08:03 10/11/16 08:03 10/11/16 08:03 General appearance: Present: A&O X 1 (awake, alert, oriented to self ), no acute distress, underweight - Head Head exam: Present: atraumatic, normocephalic - Eye Eye exam: Present: conjuntiva pink, sclera anicteric - Respiratory Respiratory exam: Absent: respiratory distress, wheezes - Cardiovascular Cardiovascular exam: Present: RRR, +S1, +S2. Absent: diastolic murmur, gallop, rubs, systolic murmur - GI/Abdominal GI/Abdominal exam: Present: normal bowel sounds, soft, no peritoneal signs. Absent: distended, tenderness - Extremities Exam Extremities exam: Present: pedal edema, warm, radial pulses palpable and symetrical. Absent: calf tenderness - Neurological Exam Neurological exam: Present: alert - Psychiatric Psychiatric exam: Present: normal affect Internal Medicine: Result - Labs CBC & Chem 7: 10/11/16 05:53 10/11/16 05:53 Labs: Short CBC 10/11/16 Range/Units 05:53 WBC 6.1 (4.3-11.1) K/mcL Hgb 10.3 L (11.5-15.4) g/dL Hct 33.5 L (35.3-44.9) % Plt Count 163 (140-400) K/mcL Neutrophils # 4.1 (1.6-8.9) K/mcL BMP 10/10/16 10/11/16 08:40 05:53 Sodium 146 H 147 H Potassium 2.9 L 2.9 L Chloride 104 104 Carbon Dioxide 36 H 36 H BUN 18 19 Creatinine 0.58 0.53 L Glucose 99 89 Calcium 8.3 L 8.4 L - ABG Interpretation ABG results: ABG ABG pH 7.46 pH Units (7.32-7.45) H 10/08/16 05:26 ABG pCO2 47 mmHg (35-45) H 10/08/16 05:26 ABG pO2 103 mmHg (85-104) 10/08/16 05:26 ABG O2 Saturation 98 % (95-98) 10/08/16 05:26 PT/INR, D-dimer PT 12.4 Seconds (9.4-12.1) H 10/07/16 03:34 Consult Discharge Plan - Plan Referrals: Salas Matta MD [Primary Care Provider] -
[2016-10-11] MEDS: Metoprolol XL (24 HR) Succ 25 MG TAB.ER.24H PO SCH (13:14)
[2016-10-12] MEDS: *HR* Heparin 5,000 UNIT/ML VIAL SQ SCH ×2 (06:15→17:51)
[2016-10-12] MEDS: Lisinopril 20 MG TABLET PO SCH (09:40)
[2016-10-12] MEDS: Metoprolol XL (24 HR) Succ 25 MG TAB.ER.24H PO SCH (09:40)
[2016-10-12] MEDS: Anastrozole 1 MG TABLET PO SCH (09:40)
[2016-10-12] MEDS: Aspirin 81 MG TAB.CHEW PO SCH (09:41)
[2016-10-12] MEDS: amLODIPine 5 MG TABLET PO SCH (09:41)
[2016-10-12] MEDS: Folic Acid 1 MG TABLET PO SCH (09:42)
[2016-10-12] MEDS: Furosemide 40 MG TABLET PO SCH ×2 (10:01→17:51)
[2016-10-12 10:40] LABS: Basophils % 0.3 %; Eosinophils % 0.2 %; Hematocrit 37.1 % (35.3-44.9); Immature Granulocytes % 0.8 % (0-4); Lymphocytes % 4.7 %; Mean Corpuscular HGB Conc 32.6 g/dL (31.6-35.5); Mean Corpuscular Hemoglobin 33.1 pg (28.0-33.3); Mean Corpuscular Volume 101.4 fL (83.0-100.0); Mean Platelet Volume 11.4 fL (9.4-12.4); Monocytes % 8.4 %; Platelet Count 189 K/mcL (140-400); Red Blood Count 3.66 M/mcL (3.82-4.97); Segmented Neutrophils % 85.6 %
[2016-10-12 10:41] LABS: Basophils # 0.1 K/mcL (0.0-0.2); Hemoglobin 12.1 g/dL (11.5-15.4); Lymphocytes # 0.8 K/mcL (0.6-4.6); Monocytes # 1.4 K/mcL (0.0-1.3); Neutrophils # 13.9 K/mcL (1.6-8.9)
[2016-10-12 10:54] LABS: BUN/Creatinine Ratio 39 (6-26); Blood Urea Nitrogen 26 mg/dL (7-20); Carbon Dioxide 36 mEq/L (19-29); Chloride 98 mEq/L (98-109); Glucose 149 mg/dL (70-99); Magnesium 1.7 mg/dL (1.6-2.6); Osmolality,Calculated 298 (280-300); Phosphorous 2.7 mg/dL (2.3-4.7); Potassium 3.9 mEq/L (3.5-4.5); Sodium 140 mEq/L (136-145); eGFR For African Americans > 60 (> 60); eGFR For Non-African Americans > 60 (> 60)
[2016-10-12 12:06] VITALS: BP 126/77
--- NOTE | 2016-10-12 12:08 | Discharge Summary ---
Date of Encounter: 10/12/16 Time of Encounter: 12:04 - Discharge Diagnosis (1) Acute respiratory failure with hypoxia Priority: Primary Status: Resolved (2) CHF (congestive heart failure) Priority: Secondary Status: Acute Qualifiers: Congestive heart failure type: combined Congestive heart failure chronicity : acute Qualified Code(s): I50.41 - Acute combined systolic (congestive) and diastolic (congestive) heart failure (3) Dementia arising in the senium and presenium Priority: Secondary Status: Chronic (4) Frail elderly Priority: Secondary Status: Chronic (5) HTN (hypertension) Priority: Secondary Status: Chronic Qualifiers: Hypertension type: essential hypertension Qualified Code(s): I10 - Essential (primary) hypertension (6) Electrolyte abnormality Priority: Secondary Status: Acute (7) DVT prophylaxis Priority: Secondary Status: Acute - Discharge Medications Home Medications: Anastrozole [Arimidex] 1 mg PO DAILY 07/07/16 [History] Lisinopril [Zestril] 20 mg PO DAILY 07/07/16 [History] Paroxetine HCl [Paxil] 10 mg PO QAM 07/07/16 [History] Phenytoin ER [Dilantin ER] 300 mg PO HS 07/07/16 [History] Acetaminophen [Tylenol] 650 mg PO Q6HR PRN #30 tablet 07/11/16 [Rx] Ferrous Sulfate 325 mg PO DAILY@0800 tablet 07/11/16 [Rx] Folic Acid 5 mg PO DAILY tablet 07/11/16 [Rx] Cyanocobalamin (Vitamin B-12) [Vitamin B12] 1,000 mcg PO DAILY 10/07/16 [History ] Aspirin 81 mg PO DAILY 10/12/16 [Rx] Atorvastatin [Lipitor] 40 mg PO HS tab 10/12/16 [Rx] Furosemide [Lasix] 40 mg PO BIDDIURETIC tab 10/12/16 [Rx] Ipratropium/Albuterol Neb [Duoneb] 3 ml IH [id number] PRN inh 10/12/16 [Rx] Metoprolol XL (24 HR) Succ [Toprol Xl] 25 mg PO DAILY 10/12/16 [Rx] amLODIPine [Norvasc] 5 mg PO DAILY tab 10/12/16 [Rx] Allergies/Adverse Reactions: Allergies No Known Allergies Allergy (Verified 02/29/16 11:10) Procedures/tests Complete & Pending: Procedures Performed prior 72 hours Category Date Time Status EV limited echocardiogram Routine Y 10/11/16 12:23 Completed Date of admission: 10/07/16 07:50 Primary care physician: Salas Matta MD Consults: 10/07/16 11:20 Consult to Cardiology [CONS] Routine Comment: Consulting Provider: Bruce Puente Reason for Consult: Acute respiratory failure, CHF, elevated Troponin Call Completed: Yes 10/07/16 11:38 Consult to Operations Liaison [CONS] Routine Reason for SW Consult: patient from [facility] Discharging clinician: Jemma Villanueva Anticipated date of discharge: 10/12/16 - Patient Status Disposition: Transfer SNF Condition: Fair Functional capacity at discharge: uses cane/walker Overall status at discharge: patient is back to baseline - Discharge Instructions Follow Up With: Salas Matta MD [Primary Care Provider] - Additional Instructions: Please follow up with your primary care physician within one week after your discharge from the hospital. Please follow up with your mask designer within one week after your discharge from the hospital. Amlodipine, Metoprolol, Aspirin, Lasix have been added to your home medications , please take these medications as prescribed. Please closely monitor your BP and HR. If your SBP<100 please hold Amlodipine, Lasix, and Metoprolol. Please resume all your other home medications as prescribed by your primary care physician. - Diet and Activity Activity: as per physical therapy, wear oxygen at all times Diet: low salt diet Hospital course: Ms. Donovan is a 80 year old female with PMH of dementia, HLD, CAD, CHF who was admitted for elevated TNI. Her hospital course was complicated with acute respiratory failure with hypoxia requiring close monitoring in the ICU. She was found to have CHF decompensation for which she was started on IV diuretics. She responded well to therapy and was transferred to medical floor once stablized. She was also noted to be hypertensive for which amlodipine was added to her regimen. She is a ID resident and is only oriented to self at baseline. She wears home oxygen at baseline. She is currently hemodynamically stable and will be discharged to ID today. She is to follow up with PCP and cardiology after discharge. - Time Spent with Patient Total time spent providing and/or coordinating discharge services: Greater than 30 minutes - Constitutional Vitals: Temp Pulse Resp BP Pulse Ox 97.7 F 89 18 101/82 97 10/12/16 07:51 10/12/16 05:30 10/12/16 07:51 10/12/16 07:51 10/12/16 05:30 General appearance: Present: A&O X 1 (awake, alert, oriented to self ), no acute distress, underweight - Head Head exam: Present: atraumatic, normocephalic - Eye Eye exam: Present: conjuntiva pink, sclera anicteric - Respiratory Respiratory exam: Present: CTAB. Absent: accessory muscle use, rales, rhonchi, wheezes - Cardiovascular Cardiovascular exam: Present: RRR, +S1, +S2. Absent: diastolic murmur, gallop, rubs, systolic murmur - GI/Abdominal GI/Abdominal exam: Present: normal bowel sounds, soft, no peritoneal signs. Absent: distended, tenderness - Extremities Exam Extremities exam: Present: warm, radial pulses palpable and symetrical. Absent : calf tenderness - Neurological Exam Neurological exam: Present: alert - Psychiatric Psychiatric exam: Present: normal affect, normal mood
--- NOTE | 2016-10-12 14:05 | Physician Discharge Referral ---
ExtendedCare Referral Info Transfer To: F Provider in Charge after Transfer: PCP - Diagnosis (1) Acute respiratory failure with hypoxia Priority: Primary Status: Resolved (2) CHF (congestive heart failure) Priority: Primary Status: Acute (3) Dementia arising in the senium and presenium Priority: Secondary Status: Chronic (4) Frail elderly Priority: Secondary Status: Chronic (5) HTN (hypertension) Priority: Secondary Status: Chronic (6) Electrolyte abnormality Priority: Secondary Status: Acute (7) DVT prophylaxis Priority: Secondary Status: Acute - Transfer Medications Home Medications: Anastrozole [Arimidex] 1 mg PO DAILY 07/07/16 [History] Lisinopril [Zestril] 20 mg PO DAILY 07/07/16 [History] Paroxetine HCl [Paxil] 10 mg PO QAM 07/07/16 [History] Phenytoin ER [Dilantin ER] 300 mg PO HS 07/07/16 [History] Acetaminophen [Tylenol] 650 mg PO Q6HR PRN #30 tablet 07/11/16 [Rx] Ferrous Sulfate 325 mg PO DAILY@0800 tablet 07/11/16 [Rx] Folic Acid 5 mg PO DAILY tablet 07/11/16 [Rx] Cyanocobalamin (Vitamin B-12) [Vitamin B12] 1,000 mcg PO DAILY 10/07/16 [History ] Aspirin 81 mg PO DAILY 10/12/16 [Rx] Atorvastatin [Lipitor] 40 mg PO HS tab 10/12/16 [Rx] Furosemide [Lasix] 40 mg PO BIDDIURETIC tab 10/12/16 [Rx] Ipratropium/Albuterol Neb [Duoneb] 3 ml IH [id number] PRN inh 10/12/16 [Rx] Metoprolol XL (24 HR) Succ [Toprol Xl] 25 mg PO DAILY 10/12/16 [Rx] amLODIPine [Norvasc] 5 mg PO DAILY tab 10/12/16 [Rx] Allergies/Adverse Reactions: Allergies No Known Allergies Allergy (Verified 02/29/16 11:10) - Respiratory Orders Oxygen / L per min (3L/min) Smoking Cessation: Smoking cessation has been advised. For more information, call the [employer] Tobacco Quit Line at 2-407-CLDB-NOW. - Rehabiliation Orders Other: Please follow up with your primary care physician within one week after your discharge from the hospital. Please follow up with your merchandise carrier within one week after your discharge from the hospital. Amlodipine, Metoprolol, Aspirin, Lasix have been added to your home medications , please take these medications as prescribed. Please closely monitor your BP and HR. If your SBP<100 please hold Amlodipine, Lasix, and Metoprolol. Please resume all your other home medications as prescribed by your primary care physician. CERTIFICATION: I certify that the transfer of the above named patient to an Extended Care Facility is necessary for the continuing treatment of the diagnosis listed. The above information is true and accurate reflection of patient's current condition. Confidential - Redisclosure prohibited without a patient's written consent.
--- NOTE | 2016-10-12 14:37 | Event Note ---
Date of Encounter: 10/12/16 Time of Encounter: 14:32 - Cardiology Event Note Repeat TTe comleted for moderate pericardial effusion seen on TTE 10/07/16. TTE shows small to moderate pericardial effusion with no evidence of tamponade. Continue to monitor. EF also improved at 50-55% from 45-50%. Out pt f/u will be scheduled with [facility].
== END 2016-10-12 19:25 | DRG 291 ==
LOC: EMEROO 03:22 → 2NENU 07:50 → SUATTDRO 07:50 → 2NENU 08:13 → ICNU 10-08 05:31 → 2NENU 10-10 10:16
PROVIDERS: ADMIT Internal Medicine; ATTEND Internal Medicine